=== PATIENT | male | born 1990 | race Caucasian/White ===

== ENCOUNTER 2016-09-02 21:57 | Emergency (ER) | payer BC, OTHER ==
[~2016-09-02] VITALS: Ht 162.6 cm; Wt 69.7 kg
[~2016-09-02 21:57] MED LIST: ONDA4TAB7 SL
[2016-09-02 22:01] VITALS: BP 138/88; PULSE 108; TEMP 36.7; O2SAT 98; Ht 162.6 cm; Wt 69.7 kg
[2016-09-02] MEDS ORDERED: PROPARACAINE HCL 0.5% OP SOLN 15 ML BTL OP STA (22:16)
[2016-09-02] MEDS ORDERED: CIPROFLOXACIN HCL 0.3% OP SOLN 2.5 ML BTL OP ONE (22:45)
[2016-09-02] MEDS ORDERED: NORCO 5/325MG HOME PACK PO ONE (22:45)
--- NOTE | 2016-09-03 16:01 | EMERGENCY ROOM VISIT NOTE ---
ED Visit Note First contact with patient: 22:09 CHIEF COMPLAINT: Eye pain HISTORY OF PRESENT ILLNESS: This 26-year-old male patient presents to the emergency department complaining of pain in the left eye that occurred when his dog accidentally scratched him across the eye about one hour ago. There has been a constant moderate pain and irritation, redness and tearing in the eye. There is a mild blurring of vision at times and light bothers the eye. The vision has mildly been decreased over all. The patient does wear contacts. The patient rates the pain as dull and 7/10. The patient has not had previous injuries to this eye. Tetanus shot is reportedly up to date. REVIEW OF SYSTEMS: A 6 system review of systems was completed with positives and pertinent negatives listed in the HPI. ALLERGIES: See EMR MEDICATIONS: See EMR PMH: No chronic medical disease SOCIAL HISTORY: Lives locally PHYSICAL EXAM: Vital Signs: Reviewed Nurse's notes, vital signs stable. Visual acuity 20/100 and the right and 20/200 in the left without correction. GENERAL : This is a white male, in no acute distress, but who is uncomfortable from the eye problem. Well-developed well-nourished. EYES: The pupils are equal round and reactive to light and accommodation. EOMs are full and without tenderness. There is discharge of clear tears from the left eye which is injected. There is no foreign body visible under the eyelid even after lid eversion. Funduscopic exam reveals no hemorrhages, papilledema, or other abnormalities. No foreign body was seen embedded in the cornea under slit lamp exam. The cornea was clear and no hyphema was seen. Fluorescein uptake was observed with ultraviolet light significant for a corneal abrasion from 6:00 to 9:00. EMERGENCY DEPARTMENT COURSE: I examined the patient. Alcaine 2 drops were placed in the patient's left eye. A slit lamp exam was performed as above. Ciloxan two drops was placed in the patient's left eye. The patient was discharged home in good condition with instructions as below. Current/Historical Medications Scheduled Ondansetron (Zofran Odt), 4 MG SL Q6HR PRN Miscellaneous Medications None (Patient States No Home Meds) Allergies Coded Allergies: Clavulanic Acid (Verified Adverse Reaction, Mild, VOMITING, 09/02/16) Penicillins (Verified Adverse Reaction, Mild, VOMITING, 09/02/16) Uncoded Allergies: BETALACTAMASEIN (Adverse Reaction, Mild, VOMITING, 07/10/09) Vital Signs Date Time Temp Pulse Resp B/P Pulse Ox O2 Delivery O2 Flow Rate FiO2 09/02/16 22:01 36.7 108 16 138/88 98 Room Air Medications Administered Medications (Trade) Dose Ordered Sig/Deja Route Start Time Stop Time Status Last Admin Dose Admin Proparacaine HCl (Alcaine 0.5% Oph Soln) 2 drops NOW STAT OP 09/02/16 22:16 09/02/16 22:17 DC 09/02/16 22:16 2 DROPS Acetaminophen/ Hydrocodone Bitart ([place] 5/325mg Home Pack) 1 homepack UD ONCE PO 09/02/16 22:45 09/02/16 22:46 DC 09/02/16 22:40 1 HOMEPACK Ciprofloxacin HCl (Ciprofloxacin 0.3% Op Soln) 2 drops NOW ONCE OP 09/02/16 22:45 09/02/16 22:46 DC 09/02/16 22:40 2 DROPS Departure Information Impression Primary Impression: Left corneal abrasion Dispostion Home / Self-Care Condition FAIR Forms HOME CARE DOCUMENTATION FORM, IMPORTANT VISIT INFORMATION Patient Instructions My [facility] Additional Instructions You were seen and evaluated today on an emergency basis only. This is not a substitute for, or an effort to provide, complete comprehensive medical care. It is not possible to recognize and treat all injuries or illnesses in a single emergency department visit. For this reason it is recommended that you followup with your eye doctor on Monday or Monday with any ongoing or persistent symptoms. For baseline pain relief you may alternate ibuprofen and acetaminophen every 4 hours for pain control. Take 600 mg ibuprofen (Advil) and then 4 hours later take 1000 mg acetaminophen (Tylenol). Do not take more than 3000 mg acetaminophen in a single day. [place] (hydrocodone/acetaminophen) 5/325 mg (homepack) every 6 hours as needed for worsening breakthrough pain. Do not drink or drive on [place]. This medication will likely make you tired. Do not take [place] and Tylenol at the same time as both contain acetaminophen. [place] may cause constipation. You may wish to take an [id number] stool softener like Colace if this occurs. Use Ciloxan Eye Drops: Instill 1-2 drops into the conjunctival sac every 2 hours while awake for 2 days and 1-2 drops every 4 hours while awake for the next 5 days You are welcome to return to the emergency department anytime with new, worsening, or concerning symptoms.
== END 2016-09-02 22:45 | disposition home or self-care (01) ==
LOC: C.EDB 21:59 → C.EDD 22:45
DX: S05.02XA Injury of conjunctiva and corneal abrasion without foreign body, left eye, initial encounter (principal); W54.8XXA Other contact with dog, initial encounter; Z88.0 Allergy status to penicillin; Z88.8 Allergy status to other drugs, medicaments and biological substances

== ENCOUNTER 2020-06-10 17:15 | Observation (INO) ==
[2020-06-10] MEDS ORDERED: LORazepam 2 MG/4 ML VIAL ONE (17:59)
[2020-06-10] MEDS ORDERED: LORazepam 1 MG/2 ML VIAL IV STA (18:04)
--- NOTE | 2020-06-10 18:14 | Emergency Department Note ---
Impression & Plan Syncope, Acute hyponatremia, Hypokalemia, Spasms of the hands or feet, COREY (acute kidney injury) ED Provider Note Provider: Davey Brink MD DATE OF SERVICE:06/10/2020 CHIEF COMPLAINT: Syncope, contractures HISTORY OF PRESENT ILLNESS: Patient is a 30-year-old gentleman history of hypertension maintained on metoprolol and apparently chlorthalidone lisinopril presenting today stating that he started to feel just a little bit off overnight. States he did eat earlier today was able to go out to the store came back between 330 and 4p from [facility] and felt dizzy so took a nap. States he wo ke up 20 to 30 minutes later and was having a headache as well as more severe contractures in both hands/forearms as well as both legs. Patient states he was able to get up and make it to the bathroom and then passed out to the ground. Patient states he passed out for very brief time. States he still fell off but was able to get up and then quickly blacked out again to the ground. Very brief LOC this time and states he braced on the counter on the way down and does not believe he significant he struck his head. Is complaining of a headache. Denies significant chest pain but some shortness of breath reported. Complaining of pain in the bilateral arms and legs states he feels very very tense. Denies significant numbness in the extremities. Denies speech issues. Patient states during the second syncopal episode his vision went black transiently and seemed may be little bit double briefly. Patient states his vision is mostly resolved now but he still feels little bit lightheaded still having and significant bilateral arm and leg contractures. REVIEW OF SYSTEMS: A total of 10 review of systems was obtained and negative except as stated above in the HPI. PAST MEDICAL HISTORY: As noted above MEDICATIONS: Reviewed home medications with the patient SOCIAL HISTORY: Smoker, currently has a girlfriend, recent alcohol usage PHYSICAL EXAM: GENERAL: alert and oriented on stretcher appears uncomfortable Head: normocephalic and atraumatic EYES: No injection, discharge or icterus. PERRL, EOMI. NECK: Trachea midline. Supple. ENT: Mucous membranes pink and moist. Pharynx without erythema or exudate. LUNGS: Airway patent. No retractions. Breath sounds clear but somewhat tachypneic HEART: Regular rate and rhythm. No chest wall tenderness ABDOMEN: Soft and non-tender, without guarding or rebound. SKIN: Acyanotic, warm, dry, without rashes EXTREMITIES: Without swelling, tenderness or deformity NEUROLOGICAL: No aphasia. No facial droop or slurred speech. Tongue midline. Sensation to gross touch normal. Patient has contractures of the bilateral hands and wrists as well as some stiffness of the bilateral feet on exam and has difficulty releasing them voluntarily. EK beats per normal sinus rhythm. No PVC or PAC. Left axis is noted with LVH. Lateral T wave inversions with prolonged QTC. Compared to previous from March 06 of this year heart rate has decreased some QTC is more prolonged. Lateral T wave inversions appear new. CONTINUOUS CARDIAC MONITORING: was ordered and showed a heart rate of bpm in Patient's laboratory studies and imaging reviewed. Differential includes Vasovagal event, dehydration, infection, hypoglycemia, electrolyte abnormalities, cardiac sources, intracerebral event, pulmonary embolism, seizure, toxicologic, neurologic, as well as other pathologies. IMPRESSION/MEDICAL DECISION MAKING: Patient presents states he felt a little bit off last night but then developed some dizziness afternoon woke up after a very brief nap with a headache and it started last night with little bit of spasm of his hand significantly worsened bilateral hand spasm and leg spasm. States he did eat and drink today. Denies significant nausea or abdominal discomfort. Denies chest pain. States he does feel somewhat short of breath and is in significant discomfort due to his arms. Denies a history of similar. EKG completed shows new lateral T wave inversions as well as a significantly prolonged QTC. Given the fall the headache complained of dizziness to completed image of the head as well as the cervical spine. Per radiology no evidence acute fractures or intracranial bleed on these images. Electrolytes were sent and was basic laboratory studies. Troponin was sent. Given some IV fluid give some Ativan here to help with some of his contracture symptoms initially. Chest x-ray per my review and radiology report does not show any acute pneumothorax or pneumonia. Laboratory studies show leukocytosis of 14.8 hemoglobin of 18 normal platelet count 262. INR not elevated. He dimer is 270 and this lowers my suspicion for acute PE. Patient has hyponatremia, hypokalemia, low chloride, elevated carbon dioxide, anion gap of 12, and a significant elevated creatinine earlier today of 2.9. Patient states he does alcohol more frequently regularly. Given IV folate and thiamine. Denies any ingestion of herbals or other toxins including antifreeze. Did send medical alcohol, lactate, VBG, serum osm again although he denies suicide attempt or overdosing on anything. Patient blood pressure did drop was given additional IV fluids here with slow improvement. Tylenol & salicylate levels not elevated I do not believe this represents overdose from these. TSH is mildly abnormal but not severe enough to truly explain these abnormalities. Lactate mildly elevated 2.8. VBG shows no acidosis slightly hypercarbic at 57. On reassessment he states he feels improvement in his hands is feeling better and his headache is feeling better and he is not feeling near syncopal and transitioning back and forth from the CT scanner. States his breathing is feeling improved as well. Discussed with the patient he is agreeable for plan for admission. Hospitalist contacted. DIAGNOSIS: Syncope, COREY, hyponatremia, hypokalemia, spasms DISPOSITION: Hospitalist will evaluate Patient was agreeable with this plan. Past Med/Surg History Medical History (Updated 06/10/20 @ 19:06 by Davey Brink M.D.) History of alcohol use disorder Surgical History No pertinent past surgical history Social History Smoking Status: Current every day smoker Tobacco Type: Cigarettes Preferred Language: Setswana Feels Safe at Home: Yes Allergies Allergies Allergy/AdvReac Type Severity Reaction Status Date / Time clavulanic acid AdvReac Mild VOMITING Verified 06/10/20 20:32 Penicillins AdvReac Mild VOMITING Verified 06/10/20 20:32 BETALACTAMASEIN AdvReac Mild VOMITING Uncoded 06/10/20 20:32 Home Meds Home Medications Medication Instructions Recorded Confirmed lisinopril-hydrochlorothiazide 1 tab PO DAILY 06/10/20 06/10/20 metoprolol succinate [Toprol XL] 50 mg PO DAILY 06/10/20 06/10/20 multivitamin 1 tab PO DAILY 06/10/20 06/10/20 Results & Data (ED) Vital Signs Vital Signs - 24 hr 06/10/20 17:42 06/10/20 18:05 06/10/20 18:15 Temperature 37 C Temperature Source Oral Pulse Rate 99 H 85 82 Pulse Rate [Right Finger] Pulse Rate from SpO2 Sensor Respiratory Rate 24 24 Blood Pressure Blood Pressure [Right Arm] Blood Pressure Mean Blood Pressure Mean [Right Arm] Pulse Oximetry 97 Oxygen Delivery Method Room Air Sepsis Recent Fever Within 48 Hours No Sepsis New/Unexplained Change in Mental Status N/A Sepsis Action Taken by Nursing No Action Required 06/10/20 18:30 06/10/20 18:45 06/10/20 18:48 Temperature Temperature Source Pulse Rate 84 82 81 Pulse Rate [Right Finger] Pulse Rate from SpO2 Sensor Respiratory Rate 24 29 H 24 Blood Pressure 77/55 L Blood Pressure [Right Arm] Blood Pressure Mean 65 Blood Pressure Mean [Right Arm] Pulse Oximetry Oxygen Delivery Method Sepsis Recent Fever Within 48 Hours Sepsis New/Unexplained Change in Mental Status Sepsis Action Taken by Nursing 06/10/20 18:49 06/10/20 19:00 06/10/20 19:15 Temperature Temperature Source Pulse Rate 82 86 76 Pulse Rate [Right Finger] Pulse Rate from SpO2 Sensor Respiratory Rate 20 30 H 28 H Blood Pressure 72/33 L Blood Pressure [Right Arm] Blood Pressure Mean 48 Blood Pressure Mean [Right Arm] Pulse Oximetry Oxygen Delivery Method Sepsis Recent Fever Within 48 Hours Sepsis New/Unexplained Change in Mental Status Sepsis Action Taken by Nursing 06/10/20 19:26 06/10/20 19:27 06/10/20 19:28 Temperature Temperature Source Pulse Rate 84 82 Pulse Rate [Right Finger] 84 Pulse Rate from SpO2 Sensor Respiratory Rate 22 20 20 Blood Pressure 77/54 L Blood Pressure [Right Arm] 77/54 L Blood Pressure Mean 58 Blood Pressure Mean [Right Arm] 61 Pulse Oximetry Oxygen Delivery Method Room Air Sepsis Recent Fever Within 48 Hours Sepsis New/Unexplained Change in Mental Status Sepsis Action Taken by Nursing 06/10/20 19:29 06/10/20 19:30 06/10/20 19:54 Temperature Temperature Source Pulse Rate 82 86 88 Pulse Rate [Right Finger] Pulse Rate from SpO2 Sensor 88 Respiratory Rate 23 25 H 25 H Blood Pressure 90/52 L 95/48 L Blood Pressure [Right Arm] Blood Pressure Mean 63 57 Blood Pressure Mean [Right Arm] Pulse Oximetry 94 Oxygen Delivery Method Sepsis Recent Fever Within 48 Hours Sepsis New/Unexplained Change in Mental Status Sepsis Action Taken by Nursing 06/10/20 19:55 06/10/20 20:00 06/10/20 20:01 Temperature Temperature Source Pulse Rate 85 82 84 Pulse Rate [Right Finger] Pulse Rate from SpO2 Sensor 85 82 84 Respiratory Rate 26 H 29 H 24 Blood Pressure 83/47 L Blood Pressure [Right Arm] Blood Pressure Mean 56 Blood Pressure Mean [Right Arm] Pulse Oximetry 94 94 97 Oxygen Delivery Method Sepsis Recent Fever Within 48 Hours Sepsis New/Unexplained Change in Mental Status Sepsis Action Taken by Nursing 06/10/20 20:15 06/10/20 20:16 06/10/20 20:30 Temperature Temperature Source Pulse Rate 84 83 85 Pulse Rate [Right Finger] Pulse Rate from SpO2 Sensor 85 83 Respiratory Rate 20 22 20 Blood Pressure 84/53 L Blood Pressure [Right Arm] Blood Pressure Mean 59 Blood Pressure Mean [Right Arm] Pulse Oximetry 97 95 Oxygen Delivery Method Sepsis Recent Fever Within 48 Hours Sepsis New/Unexplained Change in Mental Status Sepsis Action Taken by Nursing 06/10/20 20:31 06/10/20 20:33 06/10/20 20:34 Temperature Temperature Source Pulse Rate 87 87 86 Pulse Rate [Right Finger] Pulse Rate from SpO2 Sensor 87 86 86 Respiratory Rate 22 26 H 24 Blood Pressure 77/55 L 75/42 L Blood Pressure [Right Arm] Blood Pressure Mean 57 57 Blood Pressure Mean [Right Arm] Pulse Oximetry 96 90 Oxygen Delivery Method Sepsis Recent Fever Within 48 Hours Sepsis New/Unexplained Change in Mental Status Sepsis Action Taken by Nursing 06/10/20 20:45 06/10/20 20:46 06/10/20 21:00 Temperature Temperature Source Pulse Rate 83 84 86 Pulse Rate [Right Finger] Pulse Rate from SpO2 Sensor 82 84 85 Respiratory Rate 23 20 21 Blood Pressure 95/53 L 87/57 L Blood Pressure [Right Arm] Blood Pressure Mean 71 65 Blood Pressure Mean [Right Arm] Pulse Oximetry 93 91 90 Oxygen Delivery Method Sepsis Recent Fever Within 48 Hours Sepsis New/Unexplained Change in Mental Status Sepsis Action Taken by Nursing 06/10/20 21:01 Temperature Temperature Source Pulse Rate 83 Pulse Rate [Right Finger] Pulse Rate from SpO2 Sensor 83 Respiratory Rate 18 Blood Pressure Blood Pressure [Right Arm] Blood Pressure Mean Blood Pressure Mean [Right Arm] Pulse Oximetry 95 Oxygen Delivery Method Sepsis Recent Fever Within 48 Hours Sepsis New/Unexplained Change in Mental Status Sepsis Action Taken by Nursing Laboratory Data Result diagrams: 06/10/20 18:00 06/10/20 18:00 Lab Results 06/10/20 06/10/20 06/10/20 Range/Units 18:00 18:00 18:00 WBC 14.80 H (4.8-10.8) K/uL RBC 5.05 (4.7-6.1) M/uL Hgb 18.0 (14.0-18.0) g/dL Hct 50.6 (42-52) % MCV 100.2 H (80-100) fL MCH 35.6 H (25-34) pg MCHC 35.6 (32-36) g/dL RDW Std Deviation 45.3 (36.4-46.3) fL RDW Coeff of Lucita 12.5 (11.5-14.5) % Plt Count 262 (130-400) K/uL MPV 10.0 (7.4-10.4) fL Immature Gran % (Auto) 0.3 % Neut % (Auto) 75.8 % Lymph % (Auto) 15.8 % [place] % (Auto) 7.6 % Eos % (Auto) 0.3 % Baso % (Auto) 0.2 % Neut # (Auto) 11.21 H (1.4-6.5) K/uL Lymph # (Auto) 2.34 (1.2-3.4) K/uL [place] # (Auto) 1.12 H (0.11-0.59) K/uL Eos # (Auto) 0.05 (0-0.5) K/uL Baso # (Auto) 0.03 (0-0.2) K/uL Immature Gran # (Auto) 0.05 H (0.00-0.02) K/uL PT 11.9 (9.0-12.0) Seconds INR 1.1 (0.9-1.1) D-Dimer 270 (0-500) ug/L FEU VBG pH (7.36-7.41) VBG pCO2 (38-50) mmHg VBG pO2 mmHg VBG HCO3 mmol/L VBG O2 Saturation % VBG Base Excess mEq/L Barometric Pressure mm/Hg Sodium 128 L (136-145) mmol/L Potassium 2.9 L (3.5-5.1) mmol/L Chloride 75 L (98-107) mmol/L Carbon Dioxide 42 H* (21-32) mmol/L Anion Gap 12.0 H (3-11) BUN 21 H (7-18) mg/dl Creatinine 2.90 H (0.6-1.4) mg/dl Est Cr Clr Drug Dosing 34.6 ml/min Est GFR ( Amer) 32.2 Est GFR (Non-Af Amer) 27.8 BUN/Creatinine Ratio 7.1 L (10-20) Glucose 166 H (70-99) mg/dl Osmolality (280-300) mOsm/kg Lactate (0.4-2.0) mmol/L Calcium 9.7 (8.5-10.1) mg/dl Phosphorus 2.3 L (2.5-4.9) mg/dl Magnesium 2.4 (1.8-2.4) mg/dl Total Bilirubin 1.8 H (0.2-1) mg/dl AST 267 H (15-37) U/L ALT 161 H (12-78) U/L Alkaline Phosphatase 68 (45-117) U/L Total Creatine Kinase 123 (39-308) U/L Troponin I < 0.015 (0-0.045) ng/ml Total Protein 8.1 (6.4-8.2) gm/dl Albumin 3.7 (3.4-5.0) gm/dl Globulin 4.4 H (2.5-4.0) gm/dl Albumin/Globulin Ratio 0.8 L (0.9-2) Lipase 473 H (73-393) U/L TSH 7.200 H (0.300-4.500) uIu/ml Free T4 1.75 H (0.8-1.6) ng/dl Salicylates (2.8-20) mg/dl Acetaminophen (10-30) ug/ml SARS-CoV-2 Ag (Rapid) (Negative) 06/10/20 06/10/20 06/10/20 Range/Units 18:00 18:00 19:16 WBC (4.8-10.8) K/uL RBC (4.7-6.1) M/uL Hgb (14.0-18.0) g/dL Hct (42-52) % MCV (80-100) fL MCH (25-34) pg MCHC (32-36) g/dL RDW Std Deviation (36.4-46.3) fL RDW Coeff of Lucita (11.5-14.5) % Plt Count (130-400) K/uL MPV (7.4-10.4) fL Immature Gran % (Auto) % Neut % (Auto) % Lymph % (Auto) % [place] % (Auto) % Eos % (Auto) % Baso % (Auto) % Neut # (Auto) (1.4-6.5) K/uL Lymph # (Auto) (1.2-3.4) K/uL [place] # (Auto) (0.11-0.59) K/uL Eos # (Auto) (0-0.5) K/uL Baso # (Auto) (0-0.2) K/uL Immature Gran # (Auto) (0.00-0.02) K/uL PT (9.0-12.0) Seconds INR (0.9-1.1) D-Dimer (0-500) ug/L FEU VBG pH (7.36-7.41) VBG pCO2 (38-50) mmHg VBG pO2 mmHg VBG HCO3 mmol/L VBG O2 Saturation % VBG Base Excess mEq/L Barometric Pressure mm/Hg Sodium (136-145) mmol/L Potassium (3.5-5.1) mmol/L Chloride (98-107) mmol/L Carbon Dioxide (21-32) mmol/L Anion Gap (3-11) BUN (7-18) mg/dl Creatinine (0.6-1.4) mg/dl Est Cr Clr Drug Dosing ml/min Est GFR ( Amer) Est GFR (Non-Af Amer) BUN/Creatinine Ratio (10-20) Glucose (70-99) mg/dl Osmolality 289 (280-300) mOsm/kg Lactate 2.8 H* (0.4-2.0) mmol/L Calcium (8.5-10.1) mg/dl Phosphorus (2.5-4.9) mg/dl Magnesium (1.8-2.4) mg/dl Total Bilirubin (0.2-1) mg/dl AST (15-37) U/L ALT (12-78) U/L Alkaline Phosphatase (45-117) U/L Total Creatine Kinase (39-308) U/L Troponin I (0-0.045) ng/ml Total Protein (6.4-8.2) gm/dl Albumin (3.4-5.0) gm/dl Globulin (2.5-4.0) gm/dl Albumin/Globulin Ratio (0.9-2) Lipase (73-393) U/L TSH (0.300-4.500) uIu/ml Free T4 (0.8-1.6) ng/dl Salicylates < 1.7 L (2.8-20) mg/dl Acetaminophen < 2 L (10-30) ug/ml SARS-CoV-2 Ag (Rapid) (Negative) 06/10/20 06/10/20 Range/Units 19:16 19:59 WBC (4.8-10.8) K/uL RBC (4.7-6.1) M/uL Hgb (14.0-18.0) g/dL Hct (42-52) % MCV (80-100) fL MCH (25-34) pg MCHC (32-36) g/dL RDW Std Deviation (36.4-46.3) fL RDW Coeff of Lucita (11.5-14.5) % Plt Count (130-400) K/uL MPV (7.4-10.4) fL Immature Gran % (Auto) % Neut % (Auto) % Lymph % (Auto) % [place] % (Auto) % Eos % (Auto) % Baso % (Auto) % Neut # (Auto) (1.4-6.5) K/uL Lymph # (Auto) (1.2-3.4) K/uL [place] # (Auto) (0.11-0.59) K/uL Eos # (Auto) (0-0.5) K/uL Baso # (Auto) (0-0.2) K/uL Immature Gran # (Auto) (0.00-0.02) K/uL PT (9.0-12.0) Seconds INR (0.9-1.1) D-Dimer (0-500) ug/L FEU VBG pH 7.48 H (7.36-7.41) VBG pCO2 57 H (38-50) mmHg VBG pO2 18 mmHg VBG HCO3 42 mmol/L VBG O2 Saturation < 60.0 % VBG Base Excess 15.6 mEq/L Barometric Pressure 738.8 mm/Hg Sodium (136-145) mmol/L Potassium (3.5-5.1) mmol/L Chloride (98-107) mmol/L Carbon Dioxide (21-32) mmol/L Anion Gap (3-11) BUN (7-18) mg/dl Creatinine (0.6-1.4) mg/dl Est Cr Clr Drug Dosing ml/min Est GFR ( Amer) Est GFR (Non-Af Amer) BUN/Creatinine Ratio (10-20) Glucose (70-99) mg/dl Osmolality (280-300) mOsm/kg Lactate (0.4-2.0) mmol/L Calcium (8.5-10.1) mg/dl Phosphorus (2.5-4.9) mg/dl Magnesium (1.8-2.4) mg/dl Total Bilirubin (0.2-1) mg/dl AST (15-37) U/L ALT (12-78) U/L Alkaline Phosphatase (45-117) U/L Total Creatine Kinase (39-308) U/L Troponin I (0-0.045) ng/ml Total Protein (6.4-8.2) gm/dl Albumin (3.4-5.0) gm/dl Globulin (2.5-4.0) gm/dl Albumin/Globulin Ratio (0.9-2) Lipase (73-393) U/L TSH (0.300-4.500) uIu/ml Free T4 (0.8-1.6) ng/dl Salicylates (2.8-20) mg/dl Acetaminophen (10-30) ug/ml SARS-CoV-2 Ag (Rapid) Negative (Negative) Administered Medications Discontinued Medications Sodium Chloride (Nss) 500 mls @ 999 mls/hr IV .Q31M SREE Stop: 06/10/20 18:45 Last Infusion: 06/10/20 20:18 Dose: 0 mls/hr Documented by: [id number] Admin: 06/10/20 18:18 Dose: 999 mls/hr Documented by: [id number] Lorazepam (Ativan) 1 mg in 2 mls @ 2 mls/min IV NOW STA Stop: 06/10/20 18:05 Last Admin: 06/10/20 18:15 Dose: Not Given Documented by: [id number] Potassium Chloride (K Timo / Wtr) 10 meq in 100 mls @ 100 mls/hr IV ONE ONE Stop: 06/10/20 19:50 Last Infusion: 06/10/20 20:18 Dose: 0 mls/hr Documented by: [id number] Admin: 06/10/20 19:06 Dose: 100 mls/hr Documented by: [id number] Sodium Chloride (Nss 1000ml) 500 mls @ 999 mls/hr IV .Q31M ONE Stop: 06/10/20 19:31 Last Infusion: 06/10/20 20:18 Dose: 0 mls/hr Documented by: [id number] Admin: 06/10/20 19:06 Dose: 999 mls/hr Documented by: [id number] Lactated Ringer's (Lr) 500 mls @ 999 mls/hr IV .Q31M ONE Stop: 06/10/20 20:05 Last Infusion: 06/10/20 23:05 Dose: 0 mls/hr Documented by: [id number] Admin: 06/10/20 21:08 Dose: 999 mls/hr Documented by: [id number] Thiamine HCl 100 mg/ Syringe 10 mls @ 2 mls/min IV NOW STA Stop: 06/10/20 20:07 Last Admin: 06/10/20 20:28 Dose: 2 mls/min Documented by: [id number] Folic Acid 1 mg/ Syringe 10 mls @ 5 mls/min IV NOW STA Stop: 06/10/20 20:04 Last Admin: 06/10/20 20:28 Dose: 5 mls/min Documented by: [id number] Lorazepam (Lorazepam 2 Mg/4 Ml Vial) Confirm Administered Dose 2 mg .ROUTE .STK- MED ONE Stop: 06/10/20 18:00 Last Admin: 06/10/20 18:03 Dose: 1 mg Documented by: [id number] Potassium Chloride (Potassium Chloride Crtab 20 Meq Tabcr) 60 meq PO NOW STA Stop: 06/10/20 21:16 Last Admin: 06/10/20 23:09 Dose: 60 meq Documented by: [id number] Discharge Plan Visit Data Chief Complaint: Syncope Stated Complaint: PASSED OUT, LIGHT HEAD DIZZY ED Provider: Davey Brink Discharge Problem: Syncope, Acute hyponatremia, Hypokalemia, Spasms of the hands or feet, COREY (acute kidney injury) Patient Disposition: Being Evaluated by Hospitalist Discharge Instructions Interventions: ED Discharge Assessment Last Done: 06/11/20 00:07 Discharge Problem: Syncope Qualifiers: Syncope type: unspecified Qualified Code(s): R55 - Syncope and collapse
[2020-06-10] MEDS ORDERED: SODIUM CHLORIDE 0.9% 500 ML IV SCH (18:15)
[2020-06-10 18:24] LABS: Basophils # (auto) 0.03 K/uL (0-0.2); Basophils % (auto) 0.2 %; Eosinophils # (auto) 0.05 K/uL (0-0.5); Eosinophils % (auto) 0.3 %; Hematocrit (blood only) 50.6 % (42-52); Immature Granulocytes # (auto) 0.05 K/uL (0.00-0.02); Immature Granulocytes % (auto) 0.3 %; Lymphocytes # (auto) 2.34 K/uL (1.2-3.4); Lymphocytes % (auto) 15.8 %; Mean Corpuscular Hemoglobin 35.6 pg (25-34); Mean Corpuscular Hgb Conc 35.6 g/dL (32-36); Mean Corpuscular Volume 100.2 fL (80-100); Monocytes # (auto) 1.12 K/uL (0.11-0.59); Monocytes % (auto) 7.6 %; Neutrophils # (auto) 11.21 K/uL (1.4-6.5); Neutrophils % (auto) 75.8 %; Platelet Count 262 K/uL (130-400); RDW Coefficient of Variation 12.5 % (11.5-14.5); RDW Standard Deviation 45.3 fL (36.4-46.3); Red Blood Count 5.05 M/uL (4.7-6.1)
--- NOTE | 2020-06-10 18:34 | XRay Report ---
XR chest 1V portable HISTORY: syncope, fall COMPARISON: Chest 03/06/2020. FINDINGS: No pneumothorax. No pleural effusions. The cardiac silhouette remains mildly enlarged. Ther e are low lung volumes. A few linear densities at the left lung base favor subsegmental atelectasis. Otherwise, lungs are clear. No evidence for pulmonary edema. No fractures within the visualized osseo us structures. IMPRESSION: No significant change compared to the prior study. No acute process. ACT 112: Negative or not required by law. Electronically signed by: Tank Estrada M.D. 06/10/2020 6:33 PM
[2020-06-10 18:35] LABS: Alanine Aminotransferase 161 U/L (12-78); Albumin Level 3.7 gm/dl (3.4-5.0); Aspartate Aminotransferase 267 U/L (15-37); BUN Creatinine Ratio 7.1 (10-20); Blood Urea Nitrogen 21 mg/dl (7-18); Calcium 9.7 mg/dl (8.5-10.1); Carbon Dioxide 42 mmol/L (21-32); Chloride 75 mmol/L (98-107); Creatinine Clr Calc Pharmacy 34.6 ml/min; Est GFR (African American) 32.2; Est GFR (Non-African American) 27.8; Glucose 166 mg/dl (70-99); Lipase 473 U/L (73-393); Magnesium 2.4 mg/dl (1.8-2.4); Phosphorus 2.3 mg/dl (2.5-4.9); Potassium 2.9 mmol/L (3.5-5.1); Sodium 128 mmol/L (136-145)
[2020-06-10 18:38] LABS: D Dimer 270 ug/L FEU (0-500); INR 1.1 (0.9-1.1); Prothrombin Time 11.9 Seconds (9.0-12.0)
[2020-06-10 18:44] LABS: Albumin Globulin Ratio 0.8 (0.9-2); Alkaline Phosphatase 68 U/L (45-117); Bilirubin,Total 1.8 mg/dl (0.2-1); Creatine Kinase 123 U/L (39-308); Globulin 4.4 gm/dl (2.5-4.0); Total Protein 8.1 gm/dl (6.4-8.2); Troponin I < 0.015 ng/ml (0-0.045)
[2020-06-10] MEDS ORDERED: POTASSIUM CHLORIDE / WTR 10 MEQ/100 ML PLCT IV ONE (18:51)
[2020-06-10 19:01] LABS: T4 Free Thyroxine 1.75 ng/dl (0.8-1.6)
[2020-06-10] MEDS ORDERED: SODIUM CHLORIDE 0.9% 1000ML 500 ML IV ONE (19:01)
[2020-06-10 19:19] LABS: Acetaminophen < 2 ug/ml (10-30)
[2020-06-10 19:20] LABS: Salicylate < 1.7 mg/dl (2.8-20)
[2020-06-10] MEDS ORDERED: LACTATED RINGER'S 500 ML IV ONE (19:35)
[2020-06-10 19:38] LABS: Base Excess VBG 15.6 mEq/L; HCO3 VBG 42 mmol/L; PCO2 VBG 57 mmHg (38-50); PO2 VBG 18 mmHg; pH VBG 7.48 (7.36-7.41)
--- NOTE | 2020-06-10 19:52 | CT Scan Report ---
HEAD CT NONCONTRAST CT DOSE: 638.56 mGycm HISTORY: syncope, fall TECHNIQUE: Multiaxial CT images of the head were performed without the use of intravenous contrast. A utomated exposure control was utilized for this study. A dose lowering technique was utilized adheri ng to the principles of ALARA. Comparison: None. Findings: The paranasal sinuses and mastoid air cells are clear. The calvarium and skull base are int act. The ventricles and sulci are within normal limits. There is no mass, hematoma, midline shift, or acute infarct. Impression: No acute intracranial abnormality. ACT 112: Negative or not required by law. Electronically signed by: Tank Estrada M.D. 06/10/2020 7:51 PM
--- NOTE | 2020-06-10 19:57 | CT Scan Report ---
CERVICAL SPINE CT CT DOSE: 438.07 mGycm HISTORY: Neck pain. fall TECHNIQUE: Multiaxial CT images of the cervical spine were performed and reformatted in the sagittal and coronal plane without the use of contrast. A dose lowering technique was utilized adhering to th e principles of ALARA. COMPARISON: None. FINDINGS: No fractures. No subluxation. Prevertebral soft tissues and the C1-C2 interval are intact. No pneumothorax. Mild reversal of the normal lordotic curvature. IMPRESSION: No fractures within the cervical spine. ACT 112: Negative or not required by law. Electronically signed by: Tank Estrada M.D. 06/10/2020 7:55 PM
[2020-06-10] MEDS ORDERED: FOLIC ACID 1 MG in SYRINGE 9.8 ML IV STA (20:03)
[2020-06-10] MEDS ORDERED: THIAMINE HCL 100 MG in SYRINGE 9 ML IV STA (20:03)
[2020-06-10 20:04] LABS: Oxygen Saturation VBG < 60.0 %
[2020-06-10] MEDS ORDERED: POTASSIUM CHLORIDE CRTAB 20 MEQ TABCR PO STA (21:15)
[2020-06-10] MEDS ORDERED: LORazepam 1 MG/2 ML VIAL IV PRN (23:39)
[2020-06-10] MEDS ORDERED: POTASSIUM PHOS 3 MMOL/1 ML INFUSION IV STA (23:39)
[2020-06-10] MEDS ORDERED: NITROGLYCERIN SL 0.4 MG/TAB TAB SL PRN (23:39)
[2020-06-10] MEDS ORDERED: POTASSIUM PHOSPHATE 15 MMOL in SODIUM CHLORIDE 0.9% 250 ML IV ONE (23:45)
[2020-06-11] MEDS: NSS + 20MEQ KCL 20 MEQ/1,000 ML BAG IV SCH ×2 (01:16→09:30)
[2020-06-11 01:52] LABS: Appearance Urine Cloudy (Clear); Bacteria Urine Automated Negative (Negative); Blood Urine Negative (Negative); Color Urine Dark Yellow; Epithelial Cell Urine Auto 0-5 /lpf (0-5); Glucose Urine UA Negative (Negative); Ketones Urine Trace (Negative); Leukocyte Esterase Urine Negative (Negative); Nitrite Urine Negative (Negative); Protein Urine Trace (Negative); RBC Urine Automated 0-4 /hpf (0-4); Specific Gravity Urine 1.015 (1.000-1.030); Urobilinogen Urine Negative (Negative)
[2020-06-11 01:53] LABS: Bilirubin Urine 1+ (Negative)
[2020-06-11 02:14] LABS: Amphetamines+Metham, Urine Neg (Neg); Barbiturates, Urine Neg (Neg); Benzodiazepine, Urine Neg (Neg); Cocaine, Urine Neg (Neg); MDMA (Ecstacy), Urine Neg (Neg); Methadone, Urine Neg (Neg); Opiate, Urine Neg (Neg); Phencyclidine, Urine Neg (Neg)
--- NOTE | 2020-06-11 02:46 | History and Physical Report ---
DATE OF ADMISSION: 06/10/2020 CHIEF COMPLAINT: Syncope. HISTORY OF PRESENT ILLNESS: This is a 30-year-old male with past medical history of asthma, chronic rhinitis, atopic dermatitis, depression, presents with syncope. The patient says he was drinking last couple of days, he does not drink daily, as per the patient he only drinks on the weekends, and today at around 3:30 p.m., he felt dizzy he slept for sometime and then got up he felt cramps in his legs and he tried to get up to the bathroom and he passed out, fell down. He says it was not lot bit of time. No one noticed it. He got up and he was getting ready to move and again he hit the table and had loss of consciousness. His girlfriend noticed it and brought him to the ER. The patient says no seizure activity, no biting tongue or incontinence during the episode. No shortness of breath, no chest pain. No headache, no blurred vision, no earache, no runny nose, no sore throat, no fever, no chills, no cough, no nausea, no vomiting, no diarrhea, no constipation, no blood in stools or black stools. Normal bowel movements. Currently, resting comfortably and hemodynamically stable. ALLERGIES: PENICILLINS, CLAVULANIC ACID. PAST MEDICAL HISTORY: As mentioned above. PAST SURGICAL HISTORY: Tonsillectomy and adenoidectomy. MEDICATIONS: The patient is on metoprolol succinate 50 mg p.o. daily, lisinopril/hydrochlorothiazide 10/12.5 mg p.o. daily, multivitamin 1 tablet p.o. daily. FAMILY HISTORY: No family history in file. SOCIAL HISTORY: Single. No smoking. Alcoholism states he does not drink daily. No drug use. REVIEW OF SYSTEMS: As per HPI. Rest of review of systems negative. PHYSICAL EXAMINATION: GENERAL: The patient is of moderate build, not in acute distress. VITAL SIGNS: Temperature 37, pulse 73, respiratory 22, blood pressure was 70s/50s initially, oxygen has been 97 on 2 liters. HEENT: No pallor, no icterus. Pupils equal, round, and reactive to light. NECK: No JVD, no neck masses. CARDIOVASCULAR: S1, S2 heard, regular rate and rhythm, no murmur, no gallop. RESPIRATORY SYSTEM: Normal AP diameter. No accessory muscle use. No wheezing, no crackles. ABDOMEN: Soft, bowel sounds present. Nontender. No distention. CENTRAL NERVOUS SYSTEM: Cranial nerves II-XII grossly intact, nonfocal. EXTREMITIES: No edema, no erythema. LABORATORY DATA: WBC 14, hemoglobin 15.6, platelets 262. PT 11.9, INR 1.1. D-dimer 270. Venous blood gas: pH 7.4, pCO2 of 57, pO2 18, bicarbonate 42. Sodium 138, potassium 2.94, chloride 75, bicarbonate 42, BUN 21, creatinine 2.9, serum glucose 166. Osmolality 289. Lactic 2.8, calcium 9.7, phosphorus 2.3, magnesium 2.4, total bilirubin 1.8, AST 16, ALT 161, alkaline phosphatase 68, total creatine kinase 123. Troponin I less than 0.015. Lipase was 73. TSH 7.2, free T4 1.75. Urinalysis, trace ketones,TSH 7.2 Free T4 1.75.. SARS-CoV-2 antigen negative. IMAGING: CT of the head, no acute intracranial abnormalities seen. Chest x-ray: No acute findings seen. Cervical spine CT, no acute findings seen. EKG: Normal sinus rhythm, rate of 92, left axis deviation, left ventricular hypertrophy, prolonged QTC of 63, T-wave was seen in anterolateral leads. ASSESSMENT AND PLAN: This is a 30-year-old male who presents with syncope. 1. Syncope and was hypotensive in the ER possibly secondary to dehydration and on antihypertensive meds., Also some EKG changes. Initial troponin is negative. We will get an echocardiogram. Monitor in tele and consult cardiology in the a.m. 2. Prolonged QT. We will replace potassium. We will further monitor in tele. Repeat EKG, follow echo and consult cardiology in a.m. Avoid QT prolonging drugs. 3. Hyponatremia and hypokalemia. Getting fluids, replace the potassium. Holding his lisinopril and hydrochlorothiazide. Follow the repeat labs in a.m. 4. Acute kidney injury presented with creatinine of 2.9. The patient states they started blood pressure medication about a month ago, presents with hypotension. We will hold his blood pressure medications. On Iv fluids.Consult nephrology. Follow the repeat labs in am. 5. Elevated lactic acid.mostly from hypotension. Alcoholism. Will follow repeat labs. 6. Elevated LFTs, most likely from alcoholism. The patient denies regular alcohol intake. We will follow the repeat labs in a.m.Will follow liver Ultrasound. 7. Elevated TSH. We will follow the repeat labs. 8. History of hypertension, currently hypotensive. Hold his hypertensive medications. Monitor his blood pressure. 9. Alcoholism. Says does not drink daily. will continue with po thiamine, folic acid. mvi. Iv Ativan prn . Monitor for withdrawals. 10. Deep venous thrombosis prophylaxis, sequential compression devices. DISPOSITION: Closely monitor in tele floor. Level 1 full code. MTDD
[2020-06-11] MEDS ORDERED: PNEUMOCOCCAL POLYSACCHARIDES 25 MCG/0.5 ML VIAL/SYR IM ONE (05:46)
[2020-06-11] MEDS ORDERED: INFLUENZA ADMINISTRATION CHARGE ONE (05:46)
[2020-06-11] MEDS ORDERED: INFLUENZA VIRUS QUAD VACCINE 0.5 ML SYR IM ONE (05:46)
[2020-06-11] MEDS ORDERED: PNEUMOCOCCAL ADMINISTRATION CHARGE ONE (05:46)
[2020-06-11 05:56] LABS: Basophils # (auto) 0.02 K/uL (0-0.2); Basophils % (auto) 0.2 %; Eosinophils # (auto) 0.08 K/uL (0-0.5); Hematocrit (blood only) 40.4 % (42-52); Hemoglobin 13.9 g/dL (14.0-18.0); Immature Granulocytes # (auto) 0.03 K/uL (0.00-0.02); Immature Granulocytes % (auto) 0.4 %; Lymphocytes # (auto) 2.23 K/uL (1.2-3.4); Lymphocytes % (auto) 27.7 %; Mean Corpuscular Hemoglobin 34.8 pg (25-34); Mean Corpuscular Hgb Conc 34.4 g/dL (32-36); Mean Corpuscular Volume 101.3 fL (80-100); Mean Platelet Volume 9.8 fL (7.4-10.4); Monocytes # (auto) 0.81 K/uL (0.11-0.59); Monocytes % (auto) 10.1 %; Neutrophils # (auto) 4.87 K/uL (1.4-6.5); Neutrophils % (auto) 60.6 %; Platelet Count 170 K/uL (130-400); RDW Coefficient of Variation 12.6 % (11.5-14.5); RDW Standard Deviation 45.7 fL (36.4-46.3); Red Blood Count 3.99 M/uL (4.7-6.1); White Blood Count 8.04 K/uL (4.8-10.8)
[2020-06-11 06:53] LABS: Albumin Level 2.7 gm/dl (3.4-5.0); BUN Creatinine Ratio 12.7 (10-20); Bilirubin Direct 0.4 mg/dl (0-0.2); Bilirubin,Total 1.2 mg/dl (0.2-1); Calcium 7.7 mg/dl (8.5-10.1); Creatinine Clr Calc Pharmacy 61.9 ml/min; Est GFR (African American) 61.8; Est GFR (Non-African American) 53.3; Magnesium 2.3 mg/dl (1.8-2.4); Phosphorus 5.1 mg/dl (2.5-4.9); Potassium 2.9 mmol/L (3.5-5.1); Thyroid Stimulating Hormone 1.41 uIu/ml (0.300-4.500)
--- NOTE | 2020-06-11 08:17 | Ultrasound Report ---
US liver HISTORY: 30 years-old Male elevated lft patient presents with elevated LFTs COMPARISON: CT abdomen and pelvis 03/19/2020 TECHNIQUE: Multiple real-time sonographic images of the abdominal right upper quadrant were obtained assessing grayscale appearance and color flow FINDINGS: The visualized pancreas is unremarkable. Increased echogenicity with poor through transmission of the liver. No hepatic mass or marginal nodularity. No intrahepatic biliary ductal dilation. There is a 5 mm echogenic structure noted along the nondependent mid gallbladder lumen without posterior acoustic shadowing. No shadowing cholelithiasis, gallbladder wall thickening or pericholecystic fluid. Sonogr aphic Epperson sign reported as negative. Common bile duct is normal, 2 mm. Unremarkable right kidney without hydronephrosis. IMPRESSION: 1. Hepatic steatosis. 2. 5 mm tumefactive sludge versus polyp involves the dependent mid gallbladder. 3. No cholelithiasis or sonographic evidence of acute cholecystitis. 4. No biliary ductal dilation. ACT 112: Negative or not required by law. The above report was generated using voice recognition software. It may contain grammatical, syntax o r spelling errors. Electronically signed by: Filemon Linn M.D. 06/11/2020 8:16 AM
[2020-06-11] MEDS ORDERED: MULTIVITAMIN TAB PO SCH (09:00)
--- NOTE | 2020-06-11 09:31 | Cardiology Consultation ---
Date of Consultation June 11, 2020 Assessment & Plan (1) Orthostatic syncope: (2) Hypokalemia: (3) Acute hyponatremia: (4) Hypertension: (5) COREY (acute kidney injury): (6) Hyponatremia: (7) Syncope: Given the clinical context I believe the patient suffered an episode of orthostatic hypotension due to volume depletion and likely concomitant alcohol intoxication Is also with acute kidney injury and significant electrolyte abnormalities due to the above. From a cardiac standpoint I agree with further bleeding volume and electrolytes. Should be monitored on telemetry to monitor for any arrhythmias given the QT prolongation in the setting of electrolyte abnormalities. I will also order an echocardiogram to evaluate for structural abnormalities. No medication changes were made at this time. Continue to monitor on telemetry overnight History of Present Illness Reason for Consultation: syncope/abnormal ekg Requesting Physician: Dr. Juarez Attending Physician: João Loaiza DO History of Present Illness The patient is a 30-year-old male who presented to [facility] on 06/10/2020 with reports of syncope x2. He states that he was in his normal state of health yesterday and admits to having 2 beers during the day after having several drinks the night before and for the past few days. He states that he was feeling tired and lightheaded at home. He lied down to see if he would feel better and upon arising he became very lightheaded and lost consciousness. He states that he only believes he was unconscious for a few seconds. He awoke on the floor with no signs of significant trauma. He then was able to stand up and walk into the kitchen where again he syncopized this time onto the counter. At that time his girlfriend brought him into the emergency room. He denies any other concomitant cardiac complaints of chest discomfort, shortness of breath or dizziness. He believes that he did take his antihypertensives yesterday prior to the syncopal events. Upon arrival to the emergency department the patient was found to be profoundly hypokalemic with a significant prolonged QT interval and diffuse ST segment abnormalities. He was started on IV fluids and potassium supplementation. No sustained arrhythmias on monitor. Currently patient states that he feels well and is anxious for discharge Allergies Allergy/AdvReac Type Severity Reaction Status Date / Time clavulanic acid AdvReac Mild VOMITING Verified 06/10/20 20:32 Penicillins AdvReac Mild VOMITING Verified 06/10/20 20:32 BETALACTAMASEIN AdvReac Mild VOMITING Uncoded 06/10/20 20:32 Home Medications Medication Instructions Recorded Confirmed Type lisinopril-hydrochlorothiazide 1 tab PO DAILY 06/10/20 06/10/20 History metoprolol succinate [Toprol XL] 50 mg PO DAILY 06/10/20 06/10/20 History multivitamin 1 tab PO DAILY 06/10/20 06/10/20 History Patient History Medical History History of alcohol use disorder Hypertension Surgical History No pertinent past surgical history Social History Smoking Status: Unknown if ever smoked Tobacco Type: Cigarettes Hx Alcohol Use: Yes Alcohol type: beer Preferred Language: Yi Communication Ability: Effective Beliefs That Will Affect Care: None Current Living Situation: Significant Other Feels Safe at Home: Yes Assistive Devices: None Review of Systems Review of Systems: All systems reviewed & are unremarkable except as noted in HPI & below Physical Exam Physical Exam: Physical Exam: General: Awake, alert and oriented x 3. No acute distress. HEENT: Normocephalic, atraumatic. Pupils equal, round and reactive to light and accommodation. Extraocular muscles are intact. Anicteric sclera. Moist mucous membranes. Neck: No JVD. No bruit. Cardiovascular: Regular. No S-4. Normal S-1 and S-2. No S-3. No murmurs, rubs or gallops. Pulmonary: Clear to auscultation bilaterally. No rales, rhonchi, or wheezing. Abdomen: Bowel sounds x 4, soft. No rebound, guarding or tenderness. No organomegaly. Extremities: No clubbing, cyanosis or edema. +2 pedal pulses bilaterally. Skin: Warm and dry. Results & Data ([facility]) Vital Signs (Past 12 Hours) Vital Signs Temp Pulse Pulse Resp BP BP Pulse Ox 06/11/20 07:56 63 06/11/20 06:28 36.7 C 67 23 102/67 97 06/11/20 03:05 36.8 C 67 18 96/53 L 99 06/11/20 00:30 36.8 C 71 14 97/59 L 93 06/10/20 23:45 73 22 110/47 L 97 06/10/20 23:30 69 13 98/55 L 97 06/10/20 23:18 98 06/10/20 23:15 98/54 L 88 L 06/10/20 23:00 95/50 L 94 06/10/20 22:45 103/53 L 91 06/10/20 22:31 94 06/10/20 22:30 103/51 L 92 06/10/20 22:16 91 06/10/20 22:15 103/55 L 91 06/10/20 22:01 91 06/10/20 22:00 103/55 L 06/10/20 21:46 75 22 93 06/10/20 21:45 73 22 98/48 L 93 Laboratory Results Laboratory Results - last 24 hr 06/10/20 06/10/20 06/10/20 18:00 18:00 18:00 WBC 14.80 H RBC 5.05 Hgb 18.0 Hct 50.6 MCV 100.2 H MCH 35.6 H MCHC 35.6 RDW Std Deviation 45.3 RDW Coeff of Lucita 12.5 Plt Count 262 MPV 10.0 Immature Gran % (Auto) 0.3 Neut % (Auto) 75.8 Lymph % (Auto) 15.8 [place] % (Auto) 7.6 Eos % (Auto) 0.3 Baso % (Auto) 0.2 Neut # (Auto) 11.21 H Lymph # (Auto) 2.34 [place] # (Auto) 1.12 H Eos # (Auto) 0.05 Baso # (Auto) 0.03 Immature Gran # (Auto) 0.05 H PT 11.9 INR 1.1 D-Dimer 270 VBG pH VBG pCO2 VBG pO2 VBG HCO3 VBG O2 Saturation VBG Base Excess Barometric Pressure Sodium 128 L Potassium 2.9 L Chloride 75 L Carbon Dioxide 42 H* Anion Gap 12.0 H BUN 21 H Creatinine 2.90 H Est Cr Clr Drug Dosing 34.6 Est GFR ( Amer) 32.2 Est GFR (Non-Af Amer) 27.8 BUN/Creatinine Ratio 7.1 L Glucose 166 H Osmolality Lactate Calcium 9.7 Phosphorus 2.3 L Magnesium 2.4 Total Bilirubin 1.8 H Direct Bilirubin AST 267 H ALT 161 H Alkaline Phosphatase 68 Total Creatine Kinase 123 Troponin I < 0.015 Total Protein 8.1 Albumin 3.7 Globulin 4.4 H Albumin/Globulin Ratio 0.8 L Lipase 473 H TSH 7.200 H Free T4 1.75 H Urine Color Urine Appearance Urine pH Ur Specific Aspen Urine Protein Urine Glucose (UA) Urine Ketones Urine Blood Urine Nitrite Urine Bilirubin Urine Urobilinogen Ur Leukocyte Esterase Urine WBC (Auto) Urine RBC (Auto) U Hyaline Cast (Auto) U Epithel Cells (Auto) Urine Bacteria (Auto) Salicylates Urine Opiates Screen Ur Methadone, Qual Acetaminophen Urine Barbiturates Ur Phencyclidine (PCP) U Amphetamin/Meth Scrn MDMA (Ecstasy) Screen U Benzodiazepines Scrn Ur Cocaine Metabolite U Marijuana (THC) Screen SARS-CoV-2 Ag (Rapid) 06/10/20 06/10/20 06/10/20 18:00 18:00 19:16 WBC RBC Hgb Hct MCV MCH MCHC RDW Std Deviation RDW Coeff of Lucita Plt Count MPV Immature Gran % (Auto) Neut % (Auto) Lymph % (Auto) [place] % (Auto) Eos % (Auto) Baso % (Auto) Neut # (Auto) Lymph # (Auto) [place] # (Auto) Eos # (Auto) Baso # (Auto) Immature Gran # (Auto) PT INR D-Dimer VBG pH VBG pCO2 VBG pO2 VBG HCO3 VBG O2 Saturation VBG Base Excess Barometric Pressure Sodium Potassium Chloride Carbon Dioxide Anion Gap BUN Creatinine Est Cr Clr Drug Dosing Est GFR ( Amer) Est GFR (Non-Af Amer) BUN/Creatinine Ratio Glucose Osmolality 289 Lactate 2.8 H* Calcium Phosphorus Magnesium Total Bilirubin Direct Bilirubin AST ALT Alkaline Phosphatase Total Creatine Kinase Troponin I Total Protein Albumin Globulin Albumin/Globulin Ratio Lipase TSH Free T4 Urine Color Urine Appearance Urine pH Ur Specific Aspen Urine Protein Urine Glucose (UA) Urine Ketones Urine Blood Urine Nitrite Urine Bilirubin Urine Urobilinogen Ur Leukocyte Esterase Urine WBC (Auto) Urine RBC (Auto) U Hyaline Cast (Auto) U Epithel Cells (Auto) Urine Bacteria (Auto) Salicylates < 1.7 L Urine Opiates Screen Ur Methadone, Qual Acetaminophen < 2 L Urine Barbiturates Ur Phencyclidine (PCP) U Amphetamin/Meth Scrn MDMA (Ecstasy) Screen U Benzodiazepines Scrn Ur Cocaine Metabolite U Marijuana (THC) Screen SARS-CoV-2 Ag (Rapid) 06/10/20 06/10/20 06/11/20 19:16 19:59 01:00 WBC RBC Hgb Hct MCV MCH MCHC RDW Std Deviation RDW Coeff of Lucita Plt Count MPV Immature Gran % (Auto) Neut % (Auto) Lymph % (Auto) [place] % (Auto) Eos % (Auto) Baso % (Auto) Neut # (Auto) Lymph # (Auto) [place] # (Auto) Eos # (Auto) Baso # (Auto) Immature Gran # (Auto) PT INR D-Dimer VBG pH 7.48 H VBG pCO2 57 H VBG pO2 18 VBG HCO3 42 VBG O2 Saturation < 60.0 VBG Base Excess 15.6 Barometric Pressure 738.8 Sodium Potassium Chloride Carbon Dioxide Anion Gap BUN Creatinine Est Cr Clr Drug Dosing Est GFR ( Amer) Est GFR (Non-Af Amer) BUN/Creatinine Ratio Glucose Osmolality Lactate Calcium Phosphorus Magnesium Total Bilirubin Direct Bilirubin AST ALT Alkaline Phosphatase Total Creatine Kinase Troponin I Total Protein Albumin Globulin Albumin/Globulin Ratio Lipase TSH Free T4 Urine Color Urine Appearance Urine pH Ur Specific [place] Urine Protein Urine Glucose (UA) Urine Ketones Urine Blood Urine Nitrite Urine Bilirubin Urine Urobilinogen Ur Leukocyte Esterase Urine WBC (Auto) Urine RBC (Auto) U Hyaline Cast (Auto) U Epithel Cells (Auto) Urine Bacteria (Auto) Salicylates Urine Opiates Screen Neg Ur Methadone, Qual Neg Acetaminophen Urine Barbiturates Neg Ur Phencyclidine (PCP) Neg U Amphetamin/Meth Scrn Neg MDMA (Ecstasy) Screen Neg U Benzodiazepines Scrn Neg Ur Cocaine Metabolite Neg U Marijuana (THC) Screen Neg SARS-CoV-2 Ag (Rapid) Negative 06/11/20 06/11/20 06/11/20 01:00 05:29 05:29 WBC 8.04 RBC 3.99 L Hgb 13.9 L D Hct 40.4 L MCV 101.3 H MCH 34.8 H MCHC 34.4 RDW Std Deviation 45.7 RDW Coeff of Lucita 12.6 Plt Count 170 MPV 9.8 Immature Gran % (Auto) 0.4 Neut % (Auto) 60.6 Lymph % (Auto) 27.7 [place] % (Auto) 10.1 Eos % (Auto) 1.0 Baso % (Auto) 0.2 Neut # (Auto) 4.87 Lymph # (Auto) 2.23 [place] # (Auto) 0.81 H Eos # (Auto) 0.08 Baso # (Auto) 0.02 Immature Gran # (Auto) 0.03 H PT INR D-Dimer VBG pH VBG pCO2 VBG pO2 VBG HCO3 VBG O2 Saturation VBG Base Excess Barometric Pressure Sodium 134 L Potassium 2.9 L Chloride 90 L Carbon Dioxide 40 H Anion Gap 4.0 BUN 21 H Creatinine 1.69 H D Est Cr Clr Drug Dosing 61.9 Est GFR ( Amer) 61.8 Est GFR (Non-Af Amer) 53.3 BUN/Creatinine Ratio 12.7 Glucose 76 Osmolality Lactate Calcium 7.7 L D Phosphorus 5.1 H D Magnesium 2.3 Total Bilirubin 1.2 H Direct Bilirubin 0.4 H AST 128 H ALT 102 H Alkaline Phosphatase 44 L Total Creatine Kinase Troponin I Total Protein 6.0 L D Albumin 2.7 L Globulin Albumin/Globulin Ratio Lipase TSH 1.410 Free T4 Urine Color Dark Yellow Urine Appearance Cloudy A Urine pH 5.0 Ur Specific [place] 1.015 Urine Protein Trace H Urine Glucose (UA) Negative Urine Ketones Trace H Urine Blood Negative Urine Nitrite Negative Urine Bilirubin 1+ H Urine Urobilinogen Negative Ur Leukocyte Esterase Negative Urine WBC (Auto) 1-5 Urine RBC (Auto) 0-4 U Hyaline Cast (Auto) 1-5 U Epithel Cells (Auto) 0-5 Urine Bacteria (Auto) Negative Salicylates Urine Opiates Screen Ur Methadone, Qual Acetaminophen Urine Barbiturates Ur Phencyclidine (PCP) U Amphetamin/Meth Scrn MDMA (Ecstasy) Screen U Benzodiazepines Scrn Ur Cocaine Metabolite U Marijuana (THC) Screen SARS-CoV-2 Ag (Rapid) 06/11/20 08:07 WBC RBC Hgb Hct MCV MCH MCHC RDW Std Deviation RDW Coeff of Lucita Plt Count MPV Immature Gran % (Auto) Neut % (Auto) Lymph % (Auto) [place] % (Auto) Eos % (Auto) Baso % (Auto) Neut # (Auto) Lymph # (Auto) [place] # (Auto) Eos # (Auto) Baso # (Auto) Immature Gran # (Auto) PT INR D-Dimer VBG pH VBG pCO2 VBG pO2 VBG HCO3 VBG O2 Saturation VBG Base Excess Barometric Pressure Sodium Potassium Chloride Carbon Dioxide Anion Gap BUN Creatinine Est Cr Clr Drug Dosing Est GFR ( Amer) Est GFR (Non-Af Amer) BUN/Creatinine Ratio Glucose Osmolality Lactate 1.0 Calcium Phosphorus Magnesium Total Bilirubin Direct Bilirubin AST ALT Alkaline Phosphatase Total Creatine Kinase Troponin I Total Protein Albumin Globulin Albumin/Globulin Ratio Lipase TSH Free T4 Urine Color Urine Appearance Urine pH Ur Specific Aspen Urine Protein Urine Glucose (UA) Urine Ketones Urine Blood Urine Nitrite Urine Bilirubin Urine Urobilinogen Ur Leukocyte Esterase Urine WBC (Auto) Urine RBC (Auto) U Hyaline Cast (Auto) U Epithel Cells (Auto) Urine Bacteria (Auto) Salicylates Urine Opiates Screen Ur Methadone, Qual Acetaminophen Urine Barbiturates Ur Phencyclidine (PCP) U Amphetamin/Meth Scrn MDMA (Ecstasy) Screen U Benzodiazepines Scrn Ur Cocaine Metabolite U Marijuana (THC) Screen SARS-CoV-2 Ag (Rapid) (1) Syncope Syncope type: unspecified Qualified Code(s): R55 - Syncope and collapse
--- NOTE | 2020-06-11 09:46 | Nephrology Consultation ---
Date of Consultation June 11, 2020 Assessment & Plan (1) COREY (acute kidney injury): Presenting creatinine 2.9, down to 1.7 this morning. Present on Admission?: Yes (2) Hypokalemia: Potassium 2.9 this morning: Patient currently receiving normal saline with 20 mEq/L potassium at 125 hourly since last evening; pt NPO currently -will change to LR w/ 40 mEq/L K same rate and recheck bmp ordered 1300 >>>pt left before I could evaluate him; consult not completed therefore Present on Admission?: Yes (3) Hyponatremia: (4) Labile blood pressure: History of Present Illness Reason for Consultation: Acute renal failure and hyponatremia Requesting Physician: Dr. Juarez Attending Physician: João Loaiza DO History of Present Illness 30-year-old male whom I am asked to evaluate for acute renal failure and hyponatremia after he was admitted overnight for evaluation of syncope. Presenting creatinine 2.9. Past medical history includes hypertension diagnosed approximately 1 month back. Pt left AMA before I had the chance to evaluate him. Allergies Allergy/AdvReac Type Severity Reaction Status Date / Time clavulanic acid AdvReac Mild VOMITING Verified 06/10/20 20:32 Penicillins AdvReac Mild VOMITING Verified 06/10/20 20:32 BETALACTAMASEIN AdvReac Mild VOMITING Uncoded 06/10/20 20:32 Home Medications Medication Instructions Recorded Confirmed Type lisinopril-hydrochlorothiazide 1 tab PO DAILY 06/10/20 06/10/20 History metoprolol succinate [Toprol XL] 50 mg PO DAILY 06/10/20 06/10/20 History multivitamin 1 tab PO DAILY 06/10/20 06/10/20 History Patient History Medical History History of alcohol use disorder Hypertension Surgical History No pertinent past surgical history Social History Smoking Status: Unknown if ever smoked Tobacco Type: Cigarettes Hx Alcohol Use: Yes Alcohol type: beer Preferred Language: Swiss Communication Ability: Effective Beliefs That Will Affect Care: None Current Living Situation: Significant Other Feels Safe at Home: Yes Assistive Devices: None Results & Data ([facility]) Vital Signs (Past 12 Hours) Vital Signs Temp Pulse Pulse Resp BP BP Pulse Ox 06/11/20 07:56 63 06/11/20 06:28 36.7 C 67 23 102/67 97 06/11/20 03:05 36.8 C 67 18 96/53 L 99 06/11/20 00:30 36.8 C 71 14 97/59 L 93 06/10/20 23:45 73 22 110/47 L 97 06/10/20 23:30 69 13 98/55 L 97 06/10/20 23:18 98 06/10/20 23:15 98/54 L 88 L 06/10/20 23:00 95/50 L 94 06/10/20 22:45 103/53 L 91 06/10/20 22:31 94 06/10/20 22:30 103/51 L 92 06/10/20 22:16 91 06/10/20 22:15 103/55 L 91 06/10/20 22:01 91 06/10/20 22:00 103/55 L 06/10/20 21:46 75 22 93 06/10/20 21:45 73 22 98/48 L 93 Laboratory Results 06/11/20 05:29 06/11/20 05:29 Admission urinalysis: Specific gravity 1015, cloudy dark yellow urine pH 5, trace protein trace ketones 1+ bilirubin; other indices negative Toxicology screens negative Covid test negative Diagnostic Findings Liver ultrasound 1. Hepatic steatosis. 2. 5 mm tumefactive sludge versus polyp involves the dependent mid gallbladder. 3. No cholelithiasis or sonographic evidence of acute cholecystitis. 4. No biliary ductal dilation. Chest x-ray and head CT both without acute process
[2020-06-11] MEDS ORDERED: POTASSIUM CHLORIDE 40 MEQ in LACTATED RINGER'S 1,000 ML IV SCH (10:00)
--- NOTE | 2020-06-11 10:55 | Discharge Summary ---
Date of Service June 11, 2020 Admission HPI Per Admitting Provider 30-year-old male with past medical history of asthma, chronic rhinitis, atopic dermatitis, depression, presents with syncope. The patient says he was drinking last couple of days, he does not drink daily, as per the patient he only drinks on the weekends, and today at around 3:30 p.m., he felt dizzy he slept for sometime and then got up he felt cramps in his legs and he tried to get up to the bathroom and he passed out, fell down. He says it was not lot bit of time. No one noticed it. He got up and he was getting ready to move and again he hit the table and had loss of consciousness. His girlfriend noticed it and brought him to the ER. The patient says no seizure activity, no biting tongue or incontinence during the episode. No shortness of breath, no chest pain. No headache, no blurred vision, no earache, no runny nose, no sore throat, no fever, no chills, no cough, no nausea, no vomiting, no diarrhea, no constipation, no blood in stools or black stools. Normal bowel movements. Currently, resting comfortably and hemodynamically stable. Admission Exam Per Admitting Provider GENERAL: The patient is of moderate build, not in acute distress. VITAL SIGNS: Temperature 37, pulse 73, respiratory 22, blood pressure was 70s/50s initially, oxygen has been 97 on 2 liters. HEENT: No pallor, no icterus. Pupils equal, round, and reactive to light. NECK: No JVD, no neck masses. CARDIOVASCULAR: S1, S2 heard, regular rate and rhythm, no murmur, no gallop. RESPIRATORY SYSTEM: Normal AP diameter. No accessory muscle use. No wheezing, no crackles. ABDOMEN: Soft, bowel sounds present. Nontender. No distention. CENTRAL NERVOUS SYSTEM: Cranial nerves II-XII grossly intact, nonfocal. EXTREMITIES: No edema, no erythema. Principal Diagnosis Syncope COREY HTN Hyponatremia Discharge Exam ROS-No Headache, No Visual Changes, No Nausea, No Vomiting, No Fever, No Chills, No Neck Pain or Stiffness, No Chest Pain, No Palpitations, No SOB, No COYNE, No Cough, No Sputum, No Wheezing, No Abdominal Pain, No Diarrhea, No Hematemesis, No Hemoptysis, No Unexpected Weight Loss, No Flank pain, No Melena, No Hematochezia, No Frequency, No Urgency, No Burning, No Hematuria, No Rashes, No Diaphoresis. Appetite is Normal Physical Exam Gen-AAO x 3, NAD, Afebrile Head-NCAT, EOMI, PERRLA, Anicteric Sclera, No Posterior Pharyngeal Erythema Neck-Supple, No JVD, No Thyromegaly, No Masses, No LAD, No Bruits Lungs-Clear to Auscultation Bilaterally, No Rales, No Rhonchi, No Wheezing, No Crepitus Chest-No S4, +S1, +S2, No S3, No Murmurs, No Rubs, No Gallops, No Ectopy Abdomen-Soft, Bowel Sounds Present, Non Tender, Non Distended, No Hepatomegaly, No Splenomegaly, No Palpable Masses, No Rebound, No Rigidity, No Guarding Musculoskeletal-Full Range of Motion Bilaterally, No CVAT Extremities-No Cyanosis, No Clubbing, No Edema Nuero-Cranial Nerves II-XII grossly intact, Motor WNL, DTRs WNL, Strength WNL, Non Focal Psych-Normal Mood Discharge Data Allergies Allergy/AdvReac Type Severity Reaction Status Date / Time clavulanic acid AdvReac Mild VOMITING Verified 06/10/20 20:32 Penicillins AdvReac Mild VOMITING Verified 06/10/20 20:32 BETALACTAMASEIN AdvReac Mild VOMITING Uncoded 06/10/20 20:32 Consultations 06/10/20 20:24 ED Decision to Admit Stat 06/10/20 23:39 Consult Case Management - Discharge Planning Routine 06/11/20 08:00 Consult Cardiology Routine Consult Nephrology Routine Ordered Studies 06/10/20 18:04 CT cervical spine wo con Stat 06/10/20 18:05 CT head/brain wo con Stat 06/10/20 23:39 US liver Routine Allergies clavulanic acid Adverse Reaction (Mild, Verified 06/10/20 20:32) VOMITING Penicillins Adverse Reaction (Mild, Verified 06/10/20 20:32) VOMITING BETALACTAMASEIN Adverse Reaction (Mild, Uncoded 06/10/20 20:32) VOMITING Height/Weight/Isolation Height 5 ft 4 in Weight 82.4 kg Isolation Type Airborne Precautions Chemistry 06/10/20 06/11/20 18:00 05:29 Sodium 128 L 134 L Potassium 2.9 L 2.9 L Chloride 75 L 90 L Carbon Dioxide 42 H* 40 H Anion Gap 12.0 H 4.0 BUN 21 H 21 H Creatinine 2.90 H 1.69 H D Glucose 166 H 76 Urinalysis 06/11/20 01:00 Urine Color Dark Yellow Urine Appearance Cloudy A Urine pH 5.0 Ur Specific Ridge 1.015 Urine Protein Trace H Urine Glucose (UA) Negative Urine Ketones Trace H Urine Blood Negative Urine Nitrite Negative Urine Bilirubin 1+ H Hospital Course (1) Labile blood pressure: (2) Hypertension: (3) Hyponatremia: (4) Syncope: (5) Acute hyponatremia: (6) Hypokalemia: (7) Spasms of the hands or feet: (8) COREY (acute kidney injury): (9) History of alcohol use disorder: Patient came in secondary to a syncopal episode, he had acute kidney injury, hyponatremia, hypokalemia, he has been drinking heavily since the holidays and he was started on IV fluids in the ER his electrolytes were replaced, he was seen by cardiology and nephrology, he however signed out AGAINST MEDICAL ADVICE after all physicians had seen him. Total Time Total Time Spent Total Time Spent (In Minutes): 45 Total Time Includes: Examination of the Patient, Discharge Planning, Medication Reconciliation and Communication With Other Providers Discharge Plan Discharge Items Patient Disposition: Against Medical Advice Reason For Visit: SYNCOPE Activity: Resume your previous activity Non-emergency contact: Primary Care Provider Follow-up/Referrals: Matti Gabriel MD [Primary Care Provider] - Pending Studies at Discharge: No Skilled Items Patient informed of condition?: Yes DNR: No Discharge Level of Care: Other Communicable Disease: No Discharge Prognosis: Improving Medications and DC Order Prescriptions: Continued multivitamin Tablet 1 tab PO DAILY RF: 0 metoprolol succinate [Toprol XL] 50 mg tablet extended release 24 hr 50 mg PO DAILY RF: 0 lisinopril-hydrochlorothiazide 10-12.5 mg tablet 1 tab PO DAILY RF: 0 Admission Data Admit Date/Time: 06/10/20 21:15 Attending Provider: João Loaiza Admit Provider: Fish Juarez Primary Care Provider: Matti Gabriel Other Providers: Fish Juarez ; Gilberto Moe ; Joseph Price ; Peter Reese ; Rey White ; David Olivares ; Maxx Parks ; Bailey Daugherty ; Elva Carnes ; Leon Patel ; Aaliyah Lambert.
--- NOTE | 2020-06-12 06:06 | Electrocardiogram Report ---
Test Reason : Blood Pressure : / mmHG Vent. Rate : 092 BPM Atrial Rate : 092 BPM P-R Int : 134 ms QRS Dur : 090 ms QT Int : 496 ms P-R-T Axes : 001 -39 224 degrees QTc Int : 613 ms Normal sinus rhythm Left axis deviation Left ventricular hypertrophy with repolarization abnormality Prolonged QT Abnormal ECG When compared with ECG of 06-MAR-2020 09:57, Premature atrial complexes are no longer Present T wave inversion now evident in Anterolateral leads QT has lengthened Confirmed by Gustavo Claros ([id number]) on 06/12/2020 6:05:54 AM Referred By: REFERRED SELF Confirmed By:Gustavo Claros
--- NOTE | 2020-06-12 06:31 | Electrocardiogram Report ---
Test Reason : Blood Pressure : / mmHG Vent. Rate : 053 BPM Atrial Rate : 053 BPM P-R Int : 140 ms QRS Dur : 106 ms QT Int : 686 ms P-R-T Axes : 004 -17 261 degrees QTc Int : 643 ms Sinus bradycardia Left ventricular hypertrophy with repolarization abnormality T wave abnormality, consider inferolateral ischemia Prolonged QT Abnormal ECG When compared with ECG of 10-JUN-2020 17:51, Vent. rate has decreased BY 39 BPM Confirmed by Gustavo Claros ([id number]) on 06/12/2020 6:31:55 AM Referred By: REFERRED SELF Confirmed By:Gustavo Claros
== END 2020-06-11 10:05 | disposition left against medical advice (07) | DRG 312 ==
LOC: ED 17:15 → INTOOBSV 21:15 → EDINP 21:15

== ENCOUNTER 2022-06-05 20:43 | Inpatient (IN) ==
[2022-06-05] MEDS ORDERED: SODIUM CHLORIDE 0.9% 1000ML 1,000 ML IV STA (20:57)
[2022-06-05] MEDS ORDERED: MoRPHine SULFATE 10 MG/ML CARP/VIAL IV STA (20:57)
[2022-06-05] MEDS ORDERED: ONDANSETRON INJ 2 MG/ML 2 ML VIAL IV STA (20:57)
[2022-06-05] MEDS ORDERED: KETOROLAC TROMETHAMINE 15 MG/ML VIAL IV STA (20:57)
[2022-06-05 21:59] LABS: Basophils # (auto) 0.03 K/uL (0-0.2); Basophils % (auto) 0.4 %; Eosinophils # (auto) 0.01 K/uL (0-0.50); Eosinophils % (auto) 0.1 %; Hematocrit (blood only) 42.9 % (40.1-51.0); Hemoglobin 16.1 g/dl (14.0-18.0); Immature Granulocytes # (auto) 0.02 K/uL (0.00-0.02); Immature Granulocytes % (auto) 0.3 %; Lymphocytes # (auto) 1.19 K/uL (1.2-3.4); Lymphocytes % (auto) 17.3 %; Mean Corpuscular Hemoglobin 39.2 pg (25.0-34.0); Mean Corpuscular Hgb Conc 37.5 g/dL (32.0-36.0); Mean Corpuscular Volume 104.4 fL (80.0-100.0); Mean Platelet Volume 9.5 fL (9.4-12.4); Monocytes % (auto) 7.3 %; Neutrophils # (auto) 5.11 K/uL (1.4-6.5); Neutrophils % (auto) 74.6 %; Platelet Count 226 K/uL (130-400); RDW Coefficient of Variation 15.6 % (11.5-14.5); RDW Standard Deviation 59.8 fL (36.4-46.3); Red Blood Count 4.11 M/uL (4.63-6.08); White Blood Count 6.86 K/ul (4.8-10.8)
--- NOTE | 2022-06-05 22:30 | Emergency Department Note ---
History of Present Illness General Chief complaint: Abdominal Pain Stated complaint: ABDOMINAL PAIN Time Seen by Provider: 06/05/22 20:50 History of Present Illness Maximum Pain Intensity: 10 32-year-old male who presents to the emergency department with complaint of severe right flank and right lower quadrant abdominal pain. The patient reports that the pain was present upon awakening this morning. He reports that the pain has progressively worsened throughout the day. It does wax and wane in nature. The patient has had nausea and vomiting. Patient reports that his urine also looked dark upon awakening this morning. He felt fine when he went to bed last night. He denies any other recent viral symptoms, fever or diarrhea. The patient rates his discomfort a 9 out of 10. Home Medications Medication Instructions Recorded Confirmed Type No Known Home Medications 06/05/22 06/05/22 History Allergies Allergy/AdvReac Type Severity Reaction Status Date / Time clavulanic acid AdvReac Intermediate VOMITING Verified 06/05/22 21:37 Penicillins AdvReac Intermediate VOMITING Verified 06/05/22 21:37 BETALACTAMASEIN AdvReac Intermediate VOMITING Uncoded 06/05/22 21:37 Past Med/Surg History Medical History History of alcohol use disorder Hypertension Surgical History No pertinent past surgical history Social History Smoking Status: Current every day smoker Tobacco Type: Cigarettes Hx Alcohol Use: Yes Alcohol type: beer Preferred Language: Mohawk Communication Ability: Effective Beliefs That Will Affect Care: None Current Living Situation: Significant Other Feels Safe at Home: Yes Assistive Devices: None Review of Systems 10 system review was performed and was negative except for pertinent positives and negatives as indicated in history of present illness Physical Exam Vital Signs Vital Signs - 24 hr 06/05/22 20:44 Temperature 36.5 C Temperature Source Temporal Artery Scan Pulse Rate 108 H Respiratory Rate 20 Respiratory Effort / Characteristics Non-Labored Spontaneous Respiratory Depth Normal Blood Pressure 123/76 Blood Pressure Mean 91 Pulse Oximetry 96 Oxygen Delivery Method Room Air Sepsis New/Unexplained Change in Mental Status N/A Sepsis Action Taken by Nursing No Action Required CONSTITUTIONAL: Healthy and well nourished. Patient appears in moderately severe discomfort. HEENT: No scleral icterus or conjunctival injection/pallor. NECK: Full active range of motion without discomfort. LYMPHATICS: No cervical chain adenopathy. RESPIRATORY: Clear to auscultation bilaterally with no wheezing, crackles, rhonchi or stridor. CARDIOVASCULAR: Regular rate and rhythm with no murmurs, rubs or gallops. GASTROINTESTINAL: Bowel sounds present in all quadrants. Patient has minimal right lower quadrant tenderness to palpation. Negative CVA tenderness. No abdominal rigidity, guarding or rebound. Negative Epperson sign. MUSCULOSKELETAL: Full range of motion of all joints without discomfort. INTEGUMENTARY: No rash or other significant dermatologic conditions noted. HEMATOLOGIC: No ecchymosis or petechiae. PSYCHIATRIC: Positive affect. NEUROLOGIC: No focal neurologic deficits noted. Course Course Patient history and physical exam were performed. Nurses notes were reviewed. Vital signs were reviewed, showing a mild tachycardia, otherwise the patient is afebrile and normotensive. IV access was established, and labs were drawn. The patient was hydrated with a liter of normal saline, and administered IV Toradol, morphine and Zofran for pain. Review of labs shows a normal white count with no left shift or bandemia. CMP shows a potassium of 2.5, chloride 87, carbon dioxide of 36 and anion gap of 15. Creatinine is normal. Patient does have an elevated total bilirubin with normal LFTs and lipase. The patient was unable to provide a urine sample when initial work-up. Noncontrast CT of the abdomen and pelvis was completed, however there was a delay in radiologist reading. I did personally review images and did not show evidence for ureteral calculus. The patient was advised of his low potassium. The patient reports that he has had cramping of his arms and legs. Upon further review, the patient was admitted to the hospital 1 year ago for syncope related to alcohol consumption. He was found to have hyponatremia, hypokalemia and acute kidney injury. The patient reports that he has been drinking 3 beers daily. I did explain the importance of low potassium, and recommended a hospital stay. The patient was in agreement. Additional labs, including magnesium, troponin and an ECG were ordered, and were pending at the time that care was transferred to [facility], who agreed with admission. I also ordered a banana bag for the patient. He reported decent pain and nausea control prior to my transfer of care. Please see hospitalist dictations for further treatment and final disposition. Administered Medications Discontinued Medications Sodium Chloride (Nss 1000ml) 1,000 mls @ 999 mls/hr IV .Q1H1M STA Stop: 06/05/22 21:57 Last Admin: 06/05/22 21:44 Dose: 999 mls/hr Documented By: Ketorolac Tromethamine (Ketorolac Tromethamine 15 Mg/Ml Vial) 10 mg IV NOW STA Stop: 06/05/22 20:58 Last Admin: 06/05/22 21:46 Dose: 10 mg Documented By: LH Morphine Sulfate (Morphine Sulfate 10 Mg/Ml Carp/Vial) 6 mg IV NOW STA Stop: 06/05/22 20:58 Last Admin: 06/05/22 21:47 Dose: 6 mg Documented By: Ondansetron HCl (Ondansetron Inj 2 Mg/Ml 2 Ml Vial) 4 mg IV NOW STA Stop: 06/05/22 20:58 Last Admin: 06/05/22 21:44 Dose: 4 mg Documented By: Medical Decision Making Medical Records Attestation: I reviewed the patient's medical records. Home Medications Current Medication List: was personally reviewed by me Laboratory Data Attestation: I reviewed the patient's lab results. Result diagrams: 06/05/22 21:45 06/05/22 21:45 Lab Results 06/05/22 06/05/22 Range/Units 21:45 21:45 WBC 6.86 (4.8-10.8) K/ul RBC 4.11 L (4.63-6.08) M/uL Hgb 16.1 (14.0-18.0) g/dl Hct 42.9 (40.1-51.0) % MCV 104.4 H (80.0-100.0) fL MCH 39.2 H (25.0-34.0) pg MCHC 37.5 H (32.0-36.0) g/dL RDW Std Deviation 59.8 H (36.4-46.3) fL RDW Coeff of Lucita 15.6 H (11.5-14.5) % Plt Count 226 (130-400) K/uL MPV 9.5 (9.4-12.4) fL Immature Gran % (Auto) 0.3 % Neut % (Auto) 74.6 % Lymph % (Auto) 17.3 % Lee % (Auto) 7.3 % Eos % (Auto) 0.1 % Baso % (Auto) 0.4 % Neut # (Auto) 5.11 (1.4-6.5) K/uL Lymph # (Auto) 1.19 L (1.2-3.4) K/uL Lee # (Auto) 0.50 (0.24-0.82) K/uL Eos # (Auto) 0.01 (0-0.50) K/uL Baso # (Auto) 0.03 (0-0.2) K/uL Immature Gran # (Auto) 0.02 (0.00-0.02) K/uL Sodium 138 (136-145) mmol/L Potassium 2.5 L* (3.5-5.1) mmol/L Chloride 87 L (98-107) mmol/L Carbon Dioxide 36 H (21-32) mmol/L Anion Gap 15 H (3-11) BUN 7 (6-23) mg/dl Creatinine 1.00 (0.6-1.4) mg/dl Est Cr Clr Drug Dosing 88.8 ml/min Est GFR ( Amer) 114.9 ml/min Est GFR (Non-Af Amer) 99.1 ml/min BUN/Creatinine Ratio 7.0 L (10-20) Glucose 130 H (70-99(Fasting)) mg/dl Calcium 8.5 (8.5-10.1) mg/dl Total Bilirubin 2.0 H (0.2-1.0) mg/dl AST 29 (13-39) U/L ALT 20 (7-52) U/L Alkaline Phosphatase 76 (34-104) U/L Total Protein 6.7 (6.0-8.3) gm/dl Albumin 3.5 (3.4-5.0) gm/dl Globulin 3.2 (2.5-4.0) gm/dl Albumin/Globulin Ratio 1.1 (0.9-2) Lipase 46 (11-82) U/L Imaging Data Attestation: I personally reviewed and interpreted this imaging study as follows: My Impression: My interpretation of a noncontrast CT of the abdomen and pelvis does not show any obvious ureteral calculi or other concerning intra-abdominal findings. [facility] and local radiologist reports are pending. Blood Pressure Blood Pressure Findings: Normal blood pressure MDM Narrative Patient presents emergency department with complaint of severe and abrupt onset of right flank and right lower quadrant abdominal pain upon awakening this morning. His symptoms presented as a renal colic. Noncontrast CT of the abdomen and pelvis was ordered, however no obvious ureteral calculi is noted on my review. Radiologist report is pending. The patient has a concerning hypokalemia with a potassium of 2.5. This will require admission and repletion. Additional labs, ECG and troponin were also ordered for hospitalist convenience. Impression & Plan Hypokalemia, Spasms of the hands or feet, Acute abdominal pain in right flank, History of alcohol use disorder Discharge Plan Visit Data Chief Complaint: Abdominal Pain Stated Complaint: ABDOMINAL PAIN ED Provider: Roge Ojeda ED Midlevel Provider: Cali Butler Discharge Problem: Hypokalemia, Spasms of the hands or feet, Acute abdominal pain in right flank, History of alcohol use disorder Forms Stand Alone Forms: My [facility] Prescriptions Prescriptions: No Action No Known Home Medications Referrals Referrals: Matti Gabriel MD [Primary Care Provider] -
[2022-06-05 22:33] LABS: Albumin Globulin Ratio 1.1 (0.9-2); Albumin Level 3.5 gm/dl (3.4-5.0); Calcium 8.5 mg/dl (8.5-10.1); Creatinine Clr Calc Pharmacy 88.8 ml/min; Est GFR (African American) 114.9 ml/min; Est GFR (Non-African American) 99.1 ml/min; Globulin 3.2 gm/dl (2.5-4.0); Potassium 2.5 mmol/L (3.5-5.1); Total Protein 6.7 gm/dl (6.0-8.3)
[2022-06-05] MEDS ORDERED: MULTI-VITAMIN INFUSION 10 ML, THIAMINE HCL 100 MG, FOLIC ACID 1 MG in SODIUM CHLORIDE 0... IV ONE (22:56)
[2022-06-05 23:16] LABS: Magnesium 1.4 mg/dl (1.7-2.4)
[2022-06-05] MEDS ORDERED: POTASSIUM CHLORIDE CRTAB 20 MEQ TABCR PO STA (23:24)
[2022-06-05] MEDS ORDERED: oxyCODONE/ACETAMINOPHEN 5mg/325mg TAB PO PRN (23:27)
[2022-06-05] MEDS: POTASSIUM CHLORIDE / WTR 10 MEQ/100 ML PLCT IV SCH (23:36)
[2022-06-05 23:37] LABS: Troponin I High Sensitivity 7.2 pg/ml (0-20)
[2022-06-05] MEDS ORDERED: DOCUSATE SODIUM 100 MG CAP PO STA (23:40)
[2022-06-05] MEDS ORDERED: ALUMINUM/MAGNESIUM SUSP 30 ML UDC PO PRN (23:45)
[2022-06-05] MEDS ORDERED: ONDANSETRON INJ 2 MG/ML 2 ML VIAL IV PRN (23:45)
[2022-06-05] MEDS ORDERED: POLYETHYLENE (MIRALAX) 17 GM PACK PO PRN (23:45)
[2022-06-05] MEDS ORDERED: ACETAMINOPHEN 325 MG TAB PO PRN (23:45)
--- NOTE | 2022-06-05 23:48 | History & Physical Report ---
Date of Service June 05, 2022 Assessment & Plan (1) Right lower quadrant abdominal pain: Plan CT ABDOMEN & PELVIS Without Contrast: PRELIM READING Comparison CT abdomen and pelvis 03/19/2020 The appendix is borderline prominent at 8-9 mm. On the previous study the appendix had measured 8 mm. This may reflect the patient's baseline slightly prominent appendix. Early appendicitis not excluded in the correct clinical setting. Impression. Small bowel demonstrate wall thickening and slight mesenteric edema/congestion compatible with a nonspecific enteritis, either infectious or inflammatory Fluid in the colon compatible with a nonspecific diarrheal state. Colonic wall thickening appears absent The gallbladder is normally distended and contains no obvious stones. There is equivocal slight wall thickening although this may reflect an artifact. If right upper quadrant symptoms are present sonography is recommended for further evaluation Right lower quadrant pain Likely early appendicitis Patient presents with right-sided abdominal pain, sharp/stabbing in nature, onset 1 day, progressively worsening, denies fever, had nausea/vomiting/diarrhea today. Preliminary CT abdomen pelvis reading as above [follow-up final] No RUQ tender, RLQ tender minimal (pt has already received pain meds). Pain management, Nausea control, IV fluid, n.p.o. status, IV Rocephin and metronidazole. General surgery consult in AM. Concern for enteritis: Nonspecific, likely secondary to diarrhea secondary to developing appendicitis, patient with no fever, patient already on antibiotic for possible appendicitis. Continue to monitor. IV hydration. Electrolytes abnormality: likely 2/2 N,V, D. repleted, monitor. DVT prophylaxis: Heparin subcu Full code History of Present Illness Chief Complaint: Right abdominal pain Primary Care Provider: Matti Gabriel MD 32-year-old male with PMH of childhood asthma and no other significant past medical history presented to the ED with complaint of severe right flank pain and right lower quadrant abdominal pain that started today morning. Patient states that early in the morning, he thought the pain was " simply stomach ache" and then the pain progressed and worsened and he found himself curling in " position" and hence decided to come to the ED. Patient reports right- sided abdominal pain that goes towards his back, sharp/stabbing in nature, denies any pain or burning while passing urine, denies any fever, reports nausea/vomiting/diarrhea today. Patient denies any headache or dizziness, patient has normal cough, patient denies any sore throat or chest pain or palpitation. Patient reports smoking since age 16 on and off on an average of less than half packs a day, drinks 3 beers a day most days of the week, denies recreational drug use. Full code [patient's lynda Ivey present at bedside]. Patient does not take any medications at home per him. Family history - patient denies any history of cancer or renal stones or heart disease in the family. Allergies Allergy/AdvReac Type Severity Reaction Status Date / Time clavulanic acid AdvReac Intermediate VOMITING Verified 06/05/22 21:37 Penicillins AdvReac Intermediate VOMITING Verified 06/05/22 21:37 Home Medications Medication Instructions Recorded Confirmed Type No Known Home Medications 06/05/22 06/05/22 History Past Med/Surg History Medical History History of alcohol use disorder Hypertension Surgical History No pertinent past surgical history Social History Smoking Status: Current every day smoker Tobacco Type: Cigarettes Hx Alcohol Use: Yes Alcohol type: beer Preferred Language: Serbian Communication Ability: Effective Beliefs That Will Affect Care: None Current Living Situation: Significant Other Feels Safe at Home: Yes Assistive Devices: None Review of Systems Review of Systems: Negative otherwise mentioned in HPI. Physical Exam Physical Exam: GENERAL: Alert and oriented x3. NAD, on 3.5 L NC O2. HEENT: No pallor, no icterus. Pupils equal, round and reactive to light. Oral mucosa moist. NECK: No JVD, no neck masses. HEART: S1 and S2 heard. Regular rate and rhythm. No murmur, no gallop. RESPIRATORY SYSTEM: Normal AP diameter. No accessory muscle use. No wheezing, no crackles. ABDOMEN: Soft, bowel sounds present, minimal Rt LQ abd tender, no distention. CENTRAL NERVOUS SYSTEM: No facial droop. Speech is clear. Obeys simple commands. Moves extremities. EXTREMITIES: No edema, no erythema seen. No CVA angle tenderness. Results & Data Results & Data ([facility]) Vital Signs (Past 12 Hours) Vital Signs Temp Pulse Resp BP Pulse Ox O2 Del Method 06/05/22 20:44 36.5 C 108 H 20 123/76 96 Room Air Code Status & VTE Plan VTE Prophylaxis Plan VTE Prophylaxis will be ordered: Yes
[2022-06-06] MEDS ORDERED: cefTRIAXone SODIUM 2,000 MG in DEXTROSE 5% 50 ML IV SCH
[2022-06-06] MEDS: SODIUM CHLORIDE 0.9% 1000ML 1,000 ML IV SCH ×2 (00:40→13:36)
[2022-06-06] MEDS: POTASSIUM CHLORIDE / WTR 10 MEQ/100 ML PLCT IV SCH ×9 (00:40→20:53)
[2022-06-06] MEDS: MAGNESIUM SULFATE / D5W 1 GM/100 ML BAG IV SCH ×3 (02:09→07:34)
[2022-06-06] MEDS: KETOROLAC TROMETHAMINE 15 MG/ML VIAL IV PRN ×2 (03:05→10:01)
[2022-06-06 03:46] LABS: Appearance Urine Clear (Clear); Bacteria Urine Automated Negative (Negative); Blood Urine Negative (Negative); Color Urine Orange; Epithelial Cell Urine Auto >30 /lpf (0-5); Glucose Urine UA Negative (Negative); Ketones Urine Trace (Negative); Leukocyte Esterase Urine Trace (Negative); Nitrite Urine Positive (Negative); Protein Urine 1+ (Negative); RBC Urine Automated 0-4 /hpf (0-4); Specific Gravity Urine 1.026 (1.000-1.030); Urobilinogen Urine Negative (Negative)
[2022-06-06 03:50] LABS: Bilirubin Urine 1+ (Negative)
[2022-06-06] MEDS: metroNIDAZOLE 500 MG/100 ML BAG IV SCH ×4 (04:05→23:59)
[2022-06-06] MEDS: ENOXAPARIN INJ 40 MG/0.4 ML SYR SQ SCH (05:14)
[2022-06-06] MEDS: MoRPHine SULFATE 2 MG/ML CARP IV PRN ×2 (05:27→17:52)
[2022-06-06] MEDS ORDERED: PROMETHAZINE HCL 12.5 MG in SODIUM CHLORIDE 0.9% 50 ML IV PRN (06:54)
[2022-06-06 08:18] LABS: Hematocrit (blood only) 37.4 % (40.1-51.0); Hemoglobin 13.6 g/dl (14.0-18.0); Mean Corpuscular Hemoglobin 38.1 pg (25.0-34.0); Mean Corpuscular Hgb Conc 36.4 g/dL (32.0-36.0); Mean Corpuscular Volume 104.8 fL (80.0-100.0); Mean Platelet Volume 9.5 fL (9.4-12.4); Platelet Count 176 K/uL (130-400); RDW Coefficient of Variation 15.4 % (11.5-14.5); RDW Standard Deviation 59.7 fL (36.4-46.3); Red Blood Count 3.57 M/uL (4.63-6.08); White Blood Count 5.71 K/ul (4.8-10.8)
[2022-06-06 08:41] LABS: BUN Creatinine Ratio 10.1 (10-20); Calcium 7.2 mg/dl (8.5-10.1); Creatinine Clr Calc Pharmacy 100.8 ml/min; Est GFR (African American) 116.3 ml/min; Est GFR (Non-African American) 100.4 ml/min; Magnesium 2.1 mg/dl (1.7-2.4); Phosphorus 3.2 mg/dl (2.5-4.9); Potassium 2.8 mmol/L (3.5-5.1)
--- NOTE | 2022-06-06 09:14 | CT Scan Report ---
CT OF THE ABDOMEN AND PELVIS WITHOUT CONTRAST CLINICAL HISTORY: Right flank pain. COMPARISON STUDY: CT of the abdomen and pelvis March 19, 2020 and right upper quadrant ultrasound June 11, 2020. TECHNIQUE: Axial images of the abdomen and pelvis were obtained without IV contrast. Images were revi ewed in the axial, sagittal, and coronal planes. Automated exposure control was utilized for the dayana dy. A dose lowering technique was utilized adhering to the principles of ALARA. FINDINGS: Lung bases are unremarkable. No pneumatosis, free air or portal venous gas is present. Ther e are no renal, ureteral or bladder calculi. There is no hydronephrosis. There is hepatic steatosis. Mild splenomegaly is unchanged. Adrenal glands and pancreas are unremarkable. There is no biliary or pancreatic ductal dilatation. Suspected gallstones within the gallbladder are noted. There is no claudia cholecystic infiltration. There is no lymphadenopathy. The appendix is mildly distended, measuring 9 mm in caliber. This is similar to prior CT. There is no definite adjacent infiltration. Note is made of moderate wall thickening with a small associated amount of associated ascites and mesenteric stran ding involving multiple ileal loops. There is trace fluid within pelvis. There is no abscess. No galo l obstruction. Findings are suboptimally assessed on this unenhanced exam. IMPRESSION: 1. Findings consistent with a nonspecific enteritis involving multiple ileal loops, as described abov e. Wall thickening with associated mild mesenteric stranding and trace ascites. No bowel obstruction. 2. Mildly distended appendix. However, appearance similar to prior exam. The enteritis represents the primary abnormality. Although difficult to completely exclude, acute appendicitis is considered unli franca. 3. Hepatic steatosis. ACT 112: Negative or not required by law. Electronically signed by: Robbin Chen M.D. 06/06/2022 9:12 AM
[2022-06-06] MEDS: THIAMINE HCL 100 MG in SYRINGE 9 ML IV SCH (09:54)
[2022-06-06] MEDS: DOCUSATE SODIUM 100 MG CAP PO SCH ×2 (09:54→19:51)
[2022-06-06] MEDS: FOLIC ACID 1 MG in SYRINGE 9.8 ML IV SCH (09:54)
[2022-06-06] MEDS: CIPROFLOXACIN / D5W 400 MG/200 ML BAG IV SCH ×2 (09:59→19:58)
--- NOTE | 2022-06-06 10:27 | Surgery Consultation ---
Date of Consultation June 06, 2022 Assessment & Plan (1) Ileitis: 32 yr old man with ileitis/ enteritis. CT scan reviewed - appendix is borderline prominent but unchanged in size from prior with no signs of inflammation around it - this does not appear to be the cause of his symptoms and thus, would not recommend appendectomy. Reviewed conservative treatment for ileitis - stool cultures, bowel rest, IVF resuscitation, IV antibiotics. Consider GI consult for endoscopy as outpatient to rule out inflammatory bowel disease. History of Present Illness Reason for Consultation: possible acute appendicitis Requesting Physician: Ricky Salazar MD Attending Physician: Ricky Salazar MD History of Present Illness 32 yr old man who presents complaining of sharp, stabbing right lower quadrant abdominal pain which started on Monday. On Monday, ate a Turk[place] dengue beef (no other contacts ate the same thing). Developed sharp, stabbing, 15/10 intensity pain in RLQ, radiates downward and into side, persistent, constant, worse with movement, better if in position. Associated with nausea, vomiting, diarrhea and still has loose stools. No fevers/ chills. No similar episodes in the past. Did have a prior CT scan but cannot remember why - thinks it was for his gallbl adder. No abdominal operations. No family history of inflammatory bowel disease. Allergies Allergy/AdvReac Type Severity Reaction Status Date / Time clavulanic acid AdvReac Intermediate VOMITING Verified 06/05/22 21:37 Penicillins AdvReac Intermediate VOMITING Verified 06/05/22 21:37 Home Medications Medication Instructions Recorded Confirmed Type No Known Home Medications 06/05/22 06/05/22 History Patient History Medical History History of alcohol use disorder Hypertension Surgical History No pertinent past surgical history Social History Smoking Status: Current every day smoker Tobacco Type: Cigarettes Cigarettes Per Day: 1/2 ppd; Second Hand Exposure: No; Do You Dip or Chew Tobacco: No; Tobacco Cessation Education Requested by Patient: No Hx Alcohol Use: Yes Alcohol type: beer Hx Substance Use: No Preferred Language: Lao Communication Ability: Effective 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 Beliefs That Will Affect Care: None Current Living Situation: Significant Other Feels Safe at Home: Yes Safety Concerns: Feels Safe At This Time Assistive Devices: Glasses Review of Systems Review of Systems: All systems reviewed & are unremarkable except as noted in HPI & below Physical Exam Constitutional: WD/WN, vitals as above Eyes: PERRL, conjunctivae normal, anicteric sclerae ENMT: Ears: no hearing impairment and no external ear abnormality Respiratory: normal respiratory effort, lungs clear to auscultation Cardiovascular: RRR, no murmur, no edema Gastrointestinal (Abdomen): Inspection/Auscultation: abdomen normal to inspection and normal bowel sounds; abdomen not distended Percussion/Palpation: + abdomen tender (right lower quadrant), + guarding (right lower quadrant) and abdomen soft Musculoskeletal: Extremities: extremities normal to inspection Neurologic: awake; no focal motor deficits Psychiatric: A+Ox3, euthymic affect Results & Data ([facility]) Vital Signs (Past 12 Hours) Vital Signs Temp Pulse Resp BP Pulse Ox Pulse Ox O2 Del Method 06/06/22 07:38 37 C 65 16 115/86 95 Room Air 06/06/22 05:43 96 Nasal Cannula 06/06/22 02:01 Room Air 06/06/22 02:00 91 06/06/22 01:52 36.7 C 72 16 122/85 91 Room Air O2 Del Method O2 Flow Rate 06/06/22 07:38 06/06/22 05:43 1 06/06/22 02:01 06/06/22 02:00 Room Air 06/06/22 01:52 Laboratory Results Abnormal lab results 06/05/22 06/05/22 06/05/22 Range/Units 21:45 21:45 21:45 RBC 4.11 L (4.63-6.08) M/uL Hgb (14.0-18.0) g/dl Hct (40.1-51.0) % MCV 104.4 H (80.0-100.0) fL MCH 39.2 H (25.0-34.0) pg MCHC 37.5 H (32.0-36.0) g/dL RDW Std Deviation 59.8 H (36.4-46.3) fL RDW Coeff of Lucita 15.6 H (11.5-14.5) % Lymph # (Auto) 1.19 L (1.2-3.4) K/uL Potassium 2.5 L* (3.5-5.1) mmol/L Chloride 87 L (98-107) mmol/L Carbon Dioxide 36 H (21-32) mmol/L Anion Gap 15 H (3-11) BUN/Creatinine Ratio 7.0 L (10-20) Glucose 130 H (70-99(Fasting)) mg/dl Calcium (8.5-10.1) mg/dl Magnesium 1.4 L (1.7-2.4) mg/dl Total Bilirubin 2.0 H (0.2-1.0) mg/dl Urine Protein (Negative) Urine Ketones (Negative) Urine Nitrite (Negative) Urine Bilirubin (Negative) Ur Leukocyte Esterase (Negative) U Hyaline Cast (Auto) (0-5) /lpf U Epithel Cells (Auto) (0-5) /lpf 06/06/22 06/06/22 06/06/22 Range/Units 03:30 07:53 07:53 RBC 3.57 L (4.63-6.08) M/uL Hgb 13.6 L (14.0-18.0) g/dl Hct 37.4 L (40.1-51.0) % MCV 104.8 H (80.0-100.0) fL MCH 38.1 H (25.0-34.0) pg MCHC 36.4 H (32.0-36.0) g/dL RDW Std Deviation 59.7 H (36.4-46.3) fL RDW Coeff of Lucita 15.4 H (11.5-14.5) % Lymph # (Auto) (1.2-3.4) K/uL Potassium 2.8 L (3.5-5.1) mmol/L Chloride 93 L (98-107) mmol/L Carbon Dioxide 39 H (21-32) mmol/L Anion Gap (3-11) BUN/Creatinine Ratio (10-20) Glucose 101 H (70-99(Fasting)) mg/dl Calcium 7.2 L (8.5-10.1) mg/dl Magnesium (1.7-2.4) mg/dl Total Bilirubin (0.2-1.0) mg/dl Urine Protein 1+ H (Negative) Urine Ketones Trace H (Negative) Urine Nitrite Positive A (Negative) Urine Bilirubin 1+ H (Negative) Ur Leukocyte Esterase Trace H (Negative) U Hyaline Cast (Auto) 5-10 H (0-5) /lpf U Epithel Cells (Auto) >30 H (0-5) /lpf Diagnostic Findings CT OF THE ABDOMEN AND PELVIS WITHOUT CONTRAST CLINICAL HISTORY: Right flank pain. COMPARISON STUDY: CT of the abdomen and pelvis March 19, 2020 and right upper quadrant ultrasound June 11, 2020. TECHNIQUE: Axial images of the abdomen and pelvis were obtained without IV contrast. Images were reviewed in the axial, sagittal, and coronal planes. Automated exposure control was utilized for the study. A dose lowering technique was utilized adhering to the principles of ALARA. FINDINGS: Lung bases are unremarkable. No pneumatosis, free air or portal venous gas is present. There are no renal, ureteral or bladder calculi. There is no hydronephrosis. There is hepatic steatosis. Mild splenomegaly is unchanged. Adrenal glands and pancreas are unremarkable. There is no biliary or pancreatic ductal dilatation. Suspected gallstones within the gallbladder are noted. There is no pericholecystic infiltration. There is no lymphadenopathy. The appendix is mildly distended, measuring 9 mm in caliber. This is similar to prior CT. There is no definite adjacent infiltration. Note is made of moderate wall thickening with a small associated amount of associated ascites and mesenteric stranding involving multiple ileal loops. There is trace fluid within pelvis. There is no abscess. No bowel obstruction. Findings are suboptimally assessed on this unenhanced exam. IMPRESSION: 1. Findings consistent with a nonspecific enteritis involving multiple ileal loops, as described above. Wall thickening with associated mild mesenteric stranding and trace ascites. No bowel obstruction. 2. Mildly distended appendix. However, appearance similar to prior exam. The enteritis represents the primary abnormality. Although difficult to completely exclude, acute appendicitis is considered unlikely. 3. Hepatic steatosis.
[2022-06-06 13:27] LABS: Adenovirus F 40/41 PCR Not Detected (NotDetected); Astrovirus PCR Not Detected (NotDetected); Campylobacter PCR Not Detected (NotDetected); Cryptosporidium PCR Not Detected (NotDetected); Cyclospora cayetanensis PCR Not Detected (NotDetected); Entamoeba histolytica PCR Not Detected (NotDetected); Enteroaggregative E.coli(EAEC) Not Detected (NotDetected); Enteropathogenic E.coli (EPEC) Not Detected (NotDetected); Enterotoxigenic E.coli (ETEC) Not Detected (NotDetected); Giardia lamblia PCR Not Detected (NotDetected); Norovirus GI/GII PCR Not Detected (NotDetected); Plesiomonas shigelloides PCR Not Detected (NotDetected); Rotavirus A PCR Not Detected (NotDetected); Salmonella PCR Not Detected (NotDetected); Shiga-like Toxin E.coli (STEC) Not Detected (NotDetected); Shigella/Enteroinvasive E.coli Not Detected (NotDetected); Vibrio cholerae PCR Not Detected (NotDetected); Vibrio species PCR Not Detected (NotDetected); Yersinia enterocolitica PCR Not Detected (NotDetected)
[2022-06-06 13:31] LABS: Sapovirus PCR DETECTED (NotDetected)
--- NOTE | 2022-06-06 13:53 | Gastrointestinal Consultation ---
Date of Consultation June 06, 2022 Assessment & Plan (1) Right lower quadrant abdominal pain: (2) Ileitis: Plan RLQ pain and ileitis/enteritis: likely infectious etiology, suspect viral gastroenteritis. stool biofire positive for stool sapovirus. recs: --IVFs, supportive care --clear liquid diet for now --follow up in 2-3 weeks as an outpatient, can consider outpatient colonoscopy if symptoms persist Thank you for allowing me to participate in the care of this patient. History of Present Illness Attending Physician: Ricky Salazar MD History of Present Illness 32 yo male with hx asthma here for severe RLQ abdominal pains. He states pains started yesterday and about 4 days prior he had eaten some beef that nobody else in his friends/family had eaten. Notes having n/v diarrhea as well. CT shows enteritis particularly in ileum. CBC and CMP reviewed. Allergies Allergy/AdvReac Type Severity Reaction Status Date / Time clavulanic acid AdvReac Intermediate VOMITING Verified 06/05/22 21:37 Penicillins AdvReac Intermediate VOMITING Verified 06/05/22 21:37 Home Medications Medication Instructions Recorded Confirmed Type No Known Home Medications 06/05/22 06/05/22 History Patient History Medical History History of alcohol use disorder Hypertension Surgical History No pertinent past surgical history Social History Smoking Status: Current every day smoker Tobacco Type: Cigarettes Cigarettes Per Day: 1/2 ppd; Second Hand Exposure: No; Do You Dip or Chew Tobacco: No; Tobacco Cessation Education Requested by Patient: No Hx Alcohol Use: Yes Alcohol type: beer Hx Substance Use: No Preferred Language: Mongolian Communication Ability: Effective Thread Roller Required: No Beliefs That Will Affect Care: None Current Living Situation: Significant Other Feels Safe at Home: Yes Safety Concerns: Feels Safe At This Time Assistive Devices: Glasses Review of Systems Constitutional: no fever, no chills and no weight loss Eyes: as per Subjective / HPI Ear, Nose, Mouth, Throat: as per Subjective / HPI Respiratory: no dyspnea and no dyspnea on exertion Cardiovascular: no chest pain and no palpitations Gastrointestinal: as per Subjective / HPI Musculoskeletal: no joint pain and no swelling Integumentary: no rash and no lesions Neurologic: no numbness and no paresthesia Psychiatric: no depression and no anxiety Endocrine: no fatigue Hematologic / Lymphatic: no easy bleeding and no easy bruising Physical Exam Constitutional: WD/WN, vitals as above Eyes: EOM intact bilaterally Neck: normal visual inspection Respiratory: normal respiratory effort, lungs clear to auscultation Cardiovascular: RRR, no murmur, no edema Gastrointestinal (Abdomen): Inspection/Auscultation: abdomen normal to insp ection; abdomen not distended Percussion/Palpation: + abdomen tender (RLQ) and abdomen soft; no hepatosplenomegaly Musculoskeletal: Extremities: no cyanosis Gait: normal gait Skin: no rashes, warm and dry Neurologic: moves all extremities Psychiatric: A+Ox3, euthymic affect Results & Data ([facility]) Vital Signs (Past 12 Hours) Vital Signs Temp Pulse Resp BP Pulse Ox Pulse Ox O2 Del Method 06/06/22 07:38 37 C 65 16 115/86 95 Room Air 06/06/22 05:43 96 Nasal Cannula 06/06/22 02:01 Room Air 06/06/22 02:00 91 06/06/22 01:52 36.7 C 72 16 122/85 91 Room Air O2 Del Method O2 Flow Rate 06/06/22 07:38 06/06/22 05:43 1 06/06/22 02:01 06/06/22 02:00 Room Air 06/06/22 01:52 PG Care Time/CCT Total # of Minutes Spent Total Time Spent with Patient: Total time spent is greater than 50% in coordination of care (as documented) at patient's floor/unit and/or counseling patient: Coding Level of Care Code 95475 Inpt Consult Level 4 Diagnoses Right lower quadrant abdominal pain R10.31 Ileitis K52.9
--- NOTE | 2022-06-06 17:06 | Hospitalist Progress Note ---
Date of Service June 06, 2022 Assessment & Plan (1) Right lower quadrant abdominal pain: Plan Right lower quadrant pain Likely enteritis/ileitis Stool PCR panel: Positive Sapovirus General surgery consulted-appendicitis unlikely GI service consulted-likely enteritis/ileitis secondary to viral infection Continue Cipro plus Flagyl Clear liquid diet IV fluids, pain control Electrolytes abnormality: likely 2/2 N,V, D. repleted, monitor. DVT prophylaxis: Heparin subcu Full code Admission and Anticipated Discharge Date Admission Date: June 05, 2022 Subjective Follow-up for right lower quadrant pain, possible enteritis, etc. Resting in bed, comfortable, not in distress States right lower quadrant pain is mild, relieved by pain medications Denies fevers or chills, nausea or vomiting, chest pain, shortness of breath No other symptoms Review of Systems Review of Systems: all noted and negative except for above Physical Exam Physical Exam: General- oriented x 3, not in distress, speaks in sentences with no effort or accessory muscle use Eyes- anicteric Neck- no JVD Lungs- clear breath sounds bilaterally, no rales/wheezes Heart- normal rate, regular rhythm; no murmurs Abdomen- normal bowel sounds, nondistended, soft, (+) mild RLQ tenderness Extremities- no pretibial edema, no calf tenderness Neuro- alert, oriented x 3; no gross focal neurologic deficits Skin- warm & dry Results & Data Results & Data ([facility]) Vital Signs (Past 12 Hours) Vital Signs Temp Pulse Pulse Resp BP Pulse Ox O2 Del Method 06/06/22 16:00 36.7 C 82 18 122/89 96 Room Air 06/06/22 07:38 37 C 65 16 115/86 95 Room Air 06/06/22 05:43 96 Nasal Cannula O2 Flow Rate 06/06/22 16:00 06/06/22 07:38 06/06/22 05:43 1 all noted and reviewed including below
[2022-06-06] MEDS ORDERED: POTASSIUM CHLORIDE CRTAB 20 MEQ TABCR PO STA (17:14)
--- NOTE | 2022-06-06 19:01 | Electrocardiogram Report ---
Test Reason : Blood Pressure : / mmHG Vent. Rate : 086 BPM Atrial Rate : 086 BPM P-R Int : 130 ms QRS Dur : 084 ms QT Int : 488 ms P-R-T Axes : -01 -35 -83 degrees QTc Int : 583 ms Normal sinus rhythm Left axis deviation T wave abnormality, consider inferior ischemia T wave abnormality, consider anterolateral ischemia Prolonged QT Abnormal ECG When compared with ECG of 11-JUN-2020 07:14, Vent. rate has increased BY 33 BPM T wave inversion less evident in Lateral leads QT has shortened Confirmed by Quan Bowens ([id number]) on 06/06/2022 7:00:47 PM Referred By: REFERRED SELF Confirmed By:Kenton Bowens
[2022-06-07] MEDS: ENOXAPARIN INJ 40 MG/0.4 ML SYR SQ SCH (04:16)
[2022-06-07] MEDS: FOLIC ACID 1 MG in SYRINGE 9.8 ML IV SCH (09:06)
[2022-06-07] MEDS: DOCUSATE SODIUM 100 MG CAP PO SCH (09:06)
[2022-06-07] MEDS: THIAMINE HCL 100 MG in SYRINGE 9 ML IV SCH (09:06)
[2022-06-07] MEDS: CIPROFLOXACIN / D5W 400 MG/200 ML BAG IV SCH (09:14)
[2022-06-07] MEDS: metroNIDAZOLE 500 MG/100 ML BAG IV SCH (09:14)
[2022-06-07 09:40] LABS: Basophils # (auto) 0.03 K/uL (0-0.2); Basophils % (auto) 0.5 %; Eosinophils # (auto) 0.06 K/uL (0-0.50); Eosinophils % (auto) 0.9 %; Hematocrit (blood only) 38.5 % (40.1-51.0); Hemoglobin 14.1 g/dl (14.0-18.0); Immature Granulocytes # (auto) 0.01 K/uL (0.00-0.02); Immature Granulocytes % (auto) 0.2 %; Lymphocytes # (auto) 0.91 K/uL (1.2-3.4); Lymphocytes % (auto) 14.3 %; Mean Corpuscular Hemoglobin 39.6 pg (25.0-34.0); Mean Corpuscular Hgb Conc 36.6 g/dL (32.0-36.0); Mean Corpuscular Volume 108.1 fL (80.0-100.0); Mean Platelet Volume 9.9 fL (9.4-12.4); Monocytes # (auto) 0.44 K/uL (0.24-0.82); Monocytes % (auto) 6.9 %; Neutrophils # (auto) 4.91 K/uL (1.4-6.5); Neutrophils % (auto) 77.2 %; Platelet Count 181 K/uL (130-400); RDW Coefficient of Variation 15.1 % (11.5-14.5); RDW Standard Deviation 61.1 fL (36.4-46.3); Red Blood Count 3.56 M/uL (4.63-6.08); White Blood Count 6.36 K/ul (4.8-10.8)
[2022-06-07 10:06] LABS: BUN Creatinine Ratio 7.1 (10-20); Calcium 7.6 mg/dl (8.5-10.1); Creatinine Clr Calc Pharmacy 117.5 ml/min; Est GFR (African American) 133.6 ml/min; Est GFR (Non-African American) 115.3 ml/min; Magnesium 2.1 mg/dl (1.7-2.4); Potassium 3.3 mmol/L (3.5-5.1)
--- NOTE | 2022-06-07 10:43 | Hospitalist Progress Note ---
Date of Service June 07, 2022 Assessment & Plan (1) Right lower quadrant abdominal pain: Plan Right lower quadrant pain Likely Ileitis, viral gastroenteritis CT abdomen/pelvis: FINDINGS: Lung bases are unremarkable. No pneumatosis, free air or portal venous gas is present. There are no renal, ureteral or bladder calculi. There is no hydronephrosis. There is hepatic steatosis. Mild splenomegaly is unchanged. Adrenal glands and pancreas are unremarkable. There is no biliary or pancreatic ductal dilatation. Suspected gallstones within the gallbladder are noted. There is no pericholecystic infiltration. There is no lymphadenopathy. The appendix is mildly distended, measuring 9 mm in caliber. This is similar to prior CT. There is no definite adjacent infiltration. Note is made of moderate wall thickening with a small associated amount of associated ascites and mesenteric stranding involving multiple ileal loops. There is trace fluid within pelvis. There is no abscess. No bowel obstruction. Findings are suboptimally assessed on this unenhanced exam. IMPRESSION: 1. Findings consistent with a nonspecific enteritis involving multiple ileal loops, as described above. Wall thickening with associated mild mesenteric stranding and trace ascites. No bowel obstruction. 2. Mildly distended appendix. However, appearance similar to prior exam. The enteritis represents the primary abnormality. Although difficult to completely exclude, acute appendicitis is considered unlikely. 3. Hepatic steatosis. ACT 112: Negative or not required by law. Stool PCR panel: Positive Sapovirus General surgery consulted-appendicitis unlikely GI service consulted-Dr. [facility] physicians group: likely enteritis/ileitis secondary to viral infection, consider outpatient colonoscopy if symptoms persist Patient given Cipro plus Flagyl IV Clear liquid diet IV fluids, pain control Clinically much better Abdominal pain resolved Discharged home on: Ciprofloxacin 500 mg twice daily x 5 days Flagyl 500 mg 3 times daily times x5 days Follow-up with PCP in 1 week. Electrolytes abnormality: likely 2/2 N,V, D. Replaced Potassium 3.3 on the day of discharge Potassium 40 mEq x 3 days Repeat basic metabolic profile on follow-up with primary care physician in 1 week Disposition Discharge to home Follow-up with PCP in 1 week plan of care discussed with patient in detail and at length all questions answered he is understanding, agreeable, comfortable with the plan of care Admission and Anticipated Discharge Date Admission Date: June 05, 2022 Subjective Follow-up for enteritis/ileitis, etc. Seen resting in bed, comfortable, sitting up, not in distress States he feels much better overall Abdominal pain has resolved Tolerating clear liquid diet so No fevers or chills Had soft stools Nonbloody No chest pain, shortness of breath, palpitations, dizziness Ambulating with no problems States he is ready and would like to be discharged today Review of Systems Review of Systems: all noted and negative except for above Physical Exam Physical Exam: General- oriented x 3, not in distress, speaks in sentences with no effort or accessory muscle use Eyes- anicteric Neck- no JVD Lungs- clear breath sounds bilaterally, no crackles or wheezing Heart- normal rate, regular rhythm; no murmurs Abdomen- normal bowel sounds, nondistended, soft, no tenderness Extremities- no pretibial edema, no calf tenderness Neuro- alert, oriented x 3; no gross focal neurologic deficits Skin- warm & dry Results & Data Results & Data ([facility]) Vital Signs (Past 12 Hours) Vital Signs Temp Pulse Resp BP Pulse Ox O2 Del Method 06/07/22 07:00 37 C 66 16 127/85 95 Room Air all noted and reviewed including below
--- NOTE | 2022-06-07 10:56 | Discharge Summary ---
Discharge Summary Date of Service June 07, 2022 Notes For Next Care Provider Refer to GI for possible colonoscopy if symptoms persist Medication Changes From Visit New medications: Ciprofloxacin 500 mg p.o. twice daily x5 days Flagyl 500 mg p.o. 3 times daily x5 days Potassium 20 mill equivalents x3 days Admission HPI Per Admitting Provider 32-year-old male with PMH of childhood asthma and no other significant past medical history presented to the ED with complaint of severe right flank pain and right lower quadrant abdominal pain that started today morning. Patient states that early in the morning, he thought the pain was " simply stomach ache" and then the pain progressed and worsened and he found himself curling in " position" and hence decided to come to the ED. Patient reports right- sided abdominal pain that goes towards his back, sharp/stabbing in nature, denies any pain or burning while passing urine, denies any fever, reports nausea/vomiting/diarrhea today. Patient denies any headache or dizziness, patient has normal cough, patient denies any sore throat or chest pain or palpitation. Patient reports smoking since age 16 on and off on an average of less than half packs a day, drinks 3 beers a day most days of the week, denies recreational drug use. Full code [patient's lynda Ivey present at bedside]. Patient does not take any medications at home per him. Family history - patient denies any history of cancer or renal stones or heart disease in the family. Admission Exam Per Admitting Provider GENERAL: Alert and oriented x3. NAD, on 3.5 L NC O2. HEENT: No pallor, no icterus. Pupils equal, round and reactive to light. Oral mucosa moist. NECK: No JVD, no neck masses. HEART: S1 and S2 heard. Regular rate and rhythm. No murmur, no gallop. RESPIRATORY SYSTEM: Normal AP diameter. No accessory muscle use. No wheezing, no crackles. ABDOMEN: Soft, bowel sounds present, minimal Rt LQ abd tender, no distention. CENTRAL NERVOUS SYSTEM: No facial droop. Speech is clear. Obeys simple commands. Moves extremities. EXTREMITIES: No edema, no erythema seen. No CVA angle tenderness. Principal Dx & Hospital Course #1 = Principal Diagnosis (1) Right lower quadrant abdominal pain: Plan Right lower quadrant pain Likely Ileitis, viral gastroenteritis CT abdomen/pelvis: FINDINGS: Lung bases are unremarkable. No pneumatosis, free air or portal venous gas is present. There are no renal, ureteral or bladder calculi. There is no hydronephrosis. There is hepatic steatosis. Mild splenomegaly is unchanged. Adrenal glands and pancreas are unremarkable. There is no biliary or pancreatic ductal dilatation. Suspected gallstones within the gallbladder are noted. There is no pericholecystic infiltration. There is no lymphadenopathy. The appendix is mildly distended, measuring 9 mm in caliber. This is similar to prior CT. There is no definite adjacent infiltration. Note is made of moderate wall thickening with a small associated amount of associated ascites and mesenteric stranding involving multiple ileal loops. There is trace fluid within pelvis. There is no abscess. No bowel obstruction. Findings are suboptimally assessed on this unenhanced exam. IMPRESSION: 1. Findings consistent with a nonspecific enteritis involving multiple ileal loops, as described above. Wall thickening with associated mild mesenteric stranding and trace ascites. No bowel obstruction. 2. Mildly distended appendix. However, appearance similar to prior exam. The enteritis represents the primary abnormality. Although difficult to completely exclude, acute appendicitis is considered unlikely. 3. Hepatic steatosis. ACT 112: Negative or not required by law. Stool PCR panel: Positive Sapovirus General surgery consulted-appendicitis unlikely GI service consulted-Dr. Daley [facility] physicians group: likely enteritis/ileitis secondary to viral infection, consider outpatient colonoscopy if symptoms persist Patient given Cipro plus Flagyl IV Clear liquid diet IV fluids, pain control Clinically much better Abdominal pain resolved Discharged home on: Ciprofloxacin 500 mg twice daily x 5 days Flagyl 500 mg 3 times daily times x5 days Follow-up with PCP in 1 week. Electrolytes abnormality: likely 2/2 N,V, D. Replaced Potassium 3.3 on the day of discharge Potassium 40 mEq x 3 days Repeat basic metabolic profile on follow-up with primary care physician in 1 week Disposition Discharge to home Follow-up with PCP in 1 week plan of care discussed with patient in detail and at length all questions answered he is understanding, agreeable, comfortable with the plan of care Discharge Exam General- oriented x 3, not in distress, speaks in sentences with no effort or accessory muscle use Eyes- anicteric Neck- no JVD Lungs- clear breath sounds bilaterally, no crackles or wheezing Heart- normal rate, regular rhythm; no murmurs Abdomen- normal bowel sounds, nondistended, soft, no tenderness Extremities- no pretibial edema, no calf tenderness Neuro- alert, oriented x 3; no gross focal neurologic deficits Skin- warm & dry Updated Medication List Medication Instructions Recorded Confirmed Type ciprofloxacin HCl 500 mg tablet 500 mg PO BID 5 days #10 tabs 06/07/22 Rx metronidazole 500 mg tablet 500 mg PO TID 5 days #15 tabs 06/07/22 Rx potassium chloride 20 mEq 20 meq PO DAILY 3 days #3 tabs 06/07/22 Rx tablet,extended release Hospital Stay Data Consultations 06/05/22 22:52 ED Decision to Admit Stat 06/06/22 07:45 Consult General Surgery Routine 06/06/22 10:16 Consult Gastroenterology Routine Procedures Performed Operation Date: 06/07/22 16:30 <No data on this case meets the specified criteria> Diagnostic Imagining Performed 06/05/22 20:57 CT abd pelvis wo con Urgent CT OF THE ABDOMEN AND PELVIS WITHOUT CONTRAST CLINICAL HISTORY: Right flank pain. COMPARISON STUDY: CT of the abdomen and pelvis March 19, 2020 and right upper quadrant ultrasound June 11, 2020. TECHNIQUE: Axial images of the abdomen and pelvis were obtained without IV contrast. Images were reviewed in the axial, sagittal, and coronal planes. Automated exposure control was utilized for the study. A dose lowering technique was utilized adhering to the principles of ALARA. FINDINGS: Lung bases are unremarkable. No pneumatosis, free air or portal venous gas is present. There are no renal, ureteral or bladder calculi. There is no hydronephrosis. There is hepatic steatosis. Mild splenomegaly is unchanged. Adrenal glands and pancreas are unremarkable. There is no biliary or pancreatic ductal dilatation. Suspected gallstones within the gallbladder are noted. There is no pericholecystic infiltration. There is no lymphadenopathy. The appendix is mildly distended, measuring 9 mm in caliber. This is similar to prior CT. There is no definite adjacent infiltration. Note is made of moderate wall thickening with a small associated amount of associated ascites and mesenteric stranding involving multiple ileal loops. There is trace fluid within pelvis. There is no abscess. No bowel obstruction. Findings are suboptimally assessed on this unenhanced exam. IMPRESSION: 1. Findings consistent with a nonspecific enteritis involving multiple ileal loops, as described above. Wall thickening with associated mild mesenteric stranding and trace ascites. No bowel obstruction. 2. Mildly distended appendix. However, appearance similar to prior exam. The enteritis represents the primary abnormality. Although difficult to completely exclude, acute appendicitis is considered unlikely. 3. Hepatic steatosis. ACT 112: Negative or not required by law. Electronically signed by: Robbin Chen M.D. 06/06/2022 9:12 AM Pending Results Patient Have Any Pending Studies at Discharge: Yes Discharge Instructions Given to Patient (Per Discharging Provider) PLEASE REFER TO YOUR NEW MEDICATION LIST AND FOLLOW INSTRUCTIONS CAREFULLY. YOUR NEW MEDICATIONS INCLUDE: Ciprofloxacin, Flagyl-antibiotics for gastroenteritis Potassium supplement Drink plenty of fluids. Increase intake of potatoes, bananas, orange juice to increase potassium level. PLEASE CALL YOUR PRIMARY CARE PHYSICIAN OR RETURN TO THE ER IF WITH WORSENING OF SYMPTOMS, INCLUDING Abdominal pain, diarrhea, nausea and vomiting, fevers and chills, etc. FOLLOW UP WITH PRIMARY CARE PHYSICIAN in 1 week OUTLINED ABOVE. Total Time Total Time Spent Total Time Spent (In Minutes): >30 minutes
== END 2022-06-07 14:22 | disposition home or self-care (01) | DRG 392 ==
LOC: ED 20:43 → 3W 23:29 → SUATTDRO 23:29 → 3W 06-06 02:12